=== PATIENT | male | born 1950 | race Caucasian/White ===

== ENCOUNTER 2020-12-26 08:30 | Day surgery (SDC) | payer BC, SELFPAY ==
[2020-12-19 20:34] VITALS: BMI 24.3
--- NOTE | 2020-12-25 10:26 | P.CONAN_ITS ---
Documented by User: Ebonie Mcintyre 12/25/20 11:58 HPI - Anesthesia Eval Consult details Narrative: 70yo M for Colonoscopy Eliquis - afib Routine cardiac visit 05/2020 - stable for 1 year f/u [facility] Past Medical History Medical History Afib BPH (benign prostatic hyperplasia) CHF (congestive heart failure) Connective tissue disease, undifferentiated Diverticulitis GERD (gastroesophageal reflux disease) History of pericarditis History of right inguinal hernia Hypothyroid Iron deficiency anemia Orthostatic hypotension Sjogrens syndrome SVT (supraventricular tachycardia) Ulcerative colitis Umbilical hernia Surgical History Surgical History H/O cardiac radiofrequency ablation (2011) History of colonoscopy History of partial colectomy (~2005) Hx of tonsillectomy Social History Social History Smoking Status: Former smoker Smoked in Last 30 Days: No Smoking Quit Date: 1995 Use of substances other than those prescribed or required for medical reasons: No Advance Directives: No Advance Directives Information Provided: No Advance Directives on File: No Recently lost weight without trying: No Meds Allergies Allergy/AdvReac Type Severity Reaction Status Date / Time latex [LATEX] Allergy Unknown RASH Unverified 06/19/20 16:03 oxybutynin Allergy Confusion Verified 12/19/20 20:12 pantoprazole Allergy Confusion Verified 12/19/20 20:12 latex Allergy Unknown rash Uncoded 06/05/14 00:00 Latex Gloves Allergy Unknown rash Uncoded 01/01/14 00:00 Home Medications Medication Instructions Recorded Confirmed Last Taken Type apixaban [Eliquis] 1 tab PO BID 12/19/20 12/19/20 Unknown History ascorbic acid (vitamin C) [Vitamin 500 mg PO DAILY 12/19/20 12/19/20 Unknown History C] ferrous sulfate [iron] 325 mg PO DAILY 12/19/20 12/19/20 Unknown History levothyroxine 1 tab PO DAILY 12/19/20 12/19/20 12/26/20 07:00 History mesalamine 2 tab PO BID 12/19/20 12/19/20 Unknown History multivitamin 1 tab PO DAILY 12/19/20 12/19/20 Unknown History vitamin D3-folic acid tab 12/19/20 Unknown History Exam Exam Date and Time: December 25, 2020 1026 Height,Weight and Vital Signs: Height 5 ft 10 in Weight 77.111 kg Narrative Narrative: EKG 10/2019 SB @ 57 Incomp RBBB LAFB Nons[address] abn Echo 2018 LV normal in size, wall thickness, and systolic function EF 55-65% No RWMA seen Normal diastolic function LA mildly dilated No significant valve disease Assessment and Plan Assessment Anesthesia Assessment: Chart Reviewed Documented by User: Juany Farooq 12/26/20 09:15 [facility] Past Medical History Medical History Afib BPH (benign prostatic hyperplasia) CHF (congestive heart failure) Connective tissue disease, undifferentiated Diverticulitis GERD (gastroesophageal reflux disease) History of pericarditis History of right inguinal hernia Hypothyroid Iron deficiency anemia Orthostatic hypotension Sjogrens syndrome SVT (supraventricular tachycardia) Ulcerative colitis Umbilical hernia Surgical History Surgical History H/O cardiac radiofrequency ablation (2011) History of colonoscopy History of partial colectomy (~2005) Hx of tonsillectomy Social History Social History Smoking Status: Former smoker Smoked in Last 30 Days: No Smoking Quit Date: 1995 Use of substances other than those prescribed or required for medical reasons: No Advance Directives: No Advance Directives Information Provided: No Advance Directives on File: No Recently lost weight without trying: No Meds Allergies Allergy/AdvReac Type Severity Reaction Status Date / Time latex [LATEX] Allergy Unknown RASH Unverified 06/19/20 16:03 oxybutynin Allergy Confusion Verified 12/19/20 20:12 pantoprazole Allergy Confusion Verified 12/19/20 20:12 latex Allergy Unknown rash Uncoded 06/05/14 00:00 Latex Gloves Allergy Unknown rash Uncoded 01/01/14 00:00 Home Medications Medication Instructions Recorded Confirmed Last Taken Type apixaban [Eliquis] 1 tab PO BID 12/19/20 12/19/20 Unknown History ascorbic acid (vitamin C) [Vitamin 500 mg PO DAILY 12/19/20 12/19/20 Unknown History C] ferrous sulfate [iron] 325 mg PO DAILY 12/19/20 12/19/20 Unknown History levothyroxine 1 tab PO DAILY 12/19/20 12/19/20 12/26/20 07:00 History mesalamine 2 tab PO BID 12/19/20 12/19/20 Unknown History multivitamin 1 tab PO DAILY 12/19/20 12/19/20 Unknown History vitamin D3-folic acid tab 12/19/20 Unknown History Exam Airway Mallampati Class: II TM Dist: >3cm Neck ROM: Full
[2020-12-26 09:11] VITALS: BP 124/57; PULSE 60; RESP 16; TEMP 36.4; O2SAT 99
[2020-12-26] MEDS: Lactated Ringers 1,000 ML 50 ML IV (09:21)
[2020-12-26 10:37] VITALS: BP 111/60; PULSE 52; RESP 16; TEMP 35.9; O2SAT 98
--- NOTE | 2020-12-26 10:40 | PM.OP ---
Brief Operative Note Date of Service: 12/26/20 Pre-op diagnosis: Ulcerative colitis, Colorectal cancer screening Post-op diagnosis: other (Same, R/O dysplasia) Procedure: Colonoscopy to the cecum with biopsies Surgeon: Martin Ingram Anesthesia: MAC Estimated blood loss (mL): 6.0 Pathology: other (A. Ascending colon B. Transverse colon C. Descending colon D. Sigmoid colon E. rectum) Condition: stable Disposition: PACU
[2020-12-26 10:50] VITALS: BP 120/50; PULSE 50; RESP 18; TEMP 36.4; O2SAT 99
--- NOTE | 2020-12-26 10:56 | OP_ITS ---
SURGEON: Martin Ingram MD INDICATIONS: The patient presents for followup of colorectal cancer screening and longstanding history of ulcerative colitis. Full consent has been obtained from him for this, including risks of bleeding and perforation. PREOPERATIVE DIAGNOSIS: POSTOPERATIVE DIAGNOSIS: PROCEDURE PERFORMED: Colonoscopy to the cecum with multiple biopsies. ESTIMATED BLOOD LOSS: COMPLICATIONS: ANESTHESIA: Monitored anesthesia care. ASSISTANTS: SPECIMENS: PREOPERATIVE DIAGNOSES: History of ulcerative colitis and colorectal cancer screening. POSTOPERATIVE DIAGNOSES: History of ulcerative colitis and colorectal cancer screening, rule out dysplasia, sigmoid diverticulosis, internal hemorrhoids, and no active ulcerative colitis. DESCRIPTION OF PROCEDURE: The patient was placed in the left lateral decubitus position. The digital rectal exam revealed no abnormalities. There was no sign of any perianal disease. The Olympus video pediatric colonoscope was entered into the rectum and advanced easily to the cecum. Once in the cecum, I did identify normal-appearing cecal pouch with appendiceal orifice and a normal-appearing ileocecal valve. The entire cecum and ileocecal valve were well visualized and appeared normal. There was transillumination of light deep in the right lower quadrant. The scope was then slowly withdrawn assessing all mucosal surfaces carefully. Preparation was excellent. I did not visualize any sign of active colitis, polyps, nor angiodysplasia. There was some minimal areas of scarring in the descending colon and rectum. Multiple biopsies were obtained in the ascending colon, transverse colon, descending colon, sigmoid colon, and rectum. There was a mild amount of sigmoid diverticulosis. In the rectum, scope was retroflexed visualizing some internal hemorrhoids, but no other pathology. The scope was straightened out and withdrawn from the patient. He tolerated the procedure well and was returned to the recovery area in stable condition. IMPRESSION: 1. History of ulcerative colitis, rule out dysplasia. 2. Diverticulosis. 3. Internal hemorrhoids. PLAN: The results of the biopsies will be checked. Assuming there is no dysplasia, I would recommend a repeat colonoscopy in 3 years. He was advised not to use any aspirin and NSAIDs for 1 week. He was advised to continue his current regimen of the mesalamine 4.8 g daily. He was advised to resume his Eliquis tomorrow. He was advised not to use any aspirin and NSAIDs for at least a week, but preferably long-term given his use of Eliquis and underlying inflammatory bowel disease. I will plan to see him in the fall for a followup visit, but did advise him to call sooner as needed. MD SARA Lawson/PONCHO / [phone]
[2020-12-26 11:09] VITALS: BP 121/52; PULSE 55; RESP 18; O2SAT 99
== END 2020-12-26 11:51 | disposition home or self-care (01) ==
PROVIDERS: PCP Hospitalist; Visit Provider Internal Medicine
PROC: 0DJD8ZZ Inspection of Lower Intestinal Tract, Via Natural or Artificial Opening Endoscopic (ICD-10-PCS; CPT 45378; principal; 2020-12-26 09:10)
DX: Z12.11 Encounter for screening for malignant neoplasm of colon (principal); K51.00 Ulcerative (chronic) pancolitis without complications; K57.30 Diverticulosis of large intestine without perforation or abscess without bleeding; K64.8 Other hemorrhoids; I48.91 Unspecified atrial fibrillation; D50.9 Iron deficiency anemia, unspecified; M35.00 Sjogren syndrome, unspecified; Z79.01 Long term (current) use of anticoagulants; Z90.49 Acquired absence of other specified parts of digestive tract; Z79.899 Other long term (current) drug therapy; Z91.040 Latex allergy status; Z88.8 Allergy status to other drugs, medicaments and biological substances; Z87.891 Personal history of nicotine dependence
CPT/HCPCS: 45380; 88305

== ENCOUNTER 2023-01-28 07:10 | Outpatient (REF) | payer BC, SELFPAY ==
--- NOTE | ~2023-01-28 | MR_ITS ---
EXAMINATION: MR ABDOMEN WITHOUT CONTRAST CLINICAL INFORMATION: Follow-up abnormal CT scan. Dilated common bile duct. COMPARISON: Outside CT scan of the abdomen and pelvis October 2021 TECHNIQUE: MR abdomen is performed without gadolinium contrast. MRCP sequences were also performed. FINDINGS: LUNG BASES: The visualized lung bases are unremarkable. LIVER, GALLBLADDER, AND BILIARY TREE: The liver is normal in size, smooth in contour, and normal in signal. There are multiple low signal T1-signal T2 weighted sequences lesions seen throughout the liver. When compared with previous CT scan, these likely represent cysts. The largest measures 1 cm high in the dome of the liver. No other focal liver lesion. No intrahepatic biliary duct dilatation. The common bile duct is slightly dilated measuring up to 1.0 cm distally. The common bile duct tapers smoothly in the head of the pancreas. No filling defect or stricture is seen. The gallbladder is unremarkable with no evidence of gallbladder wall thickening, or obvious pericholecystic inflammatory changes. PANCREAS: The pancreas is normal in signal. The main pancreatic duct does not appear dilated. SPLEEN: Unremarkable. ADRENAL GLANDS: Unremarkable. KIDNEYS AND URETERS: There are multiple small bilateral T2 lesions in both kidneys. When compared with previous CT scan, these likely represent cysts, largest measuring 1 cm. No imaging follow-up recommended. The kidneys are normal in size and shape. No hydronephrosis. No perinephric stranding. GASTROINTESTINAL TRACT: No bowel obstruction. No ascites or fluid collection. ABDOMINAL WALL: No significant hernia is appreciated. LYMPH NODES: No lymphadenopathy. VASCULAR: Unremarkable. OSSEOUS STRUCTURES: Marrow signal normal. There is multilevel degenerative disc disease. MR/MR MRCP IMPRESSION: Mild dilatation of the common bile duct measuring up to 1.0 cm. This is slightly decreased compared to previous CT scan October 2021 when the common bile duct measured 1.2 cm. No filling defect or stricture is seen. Liver and bilateral renal cysts.
== END 2023-01-28 07:11 | disposition home or self-care (01) ==
LOC: HO.MRI 07:10
PROVIDERS: PCP Physician Assistant; Visit Provider Internal Medicine
DX: R93.2 Abnormal findings on diagnostic imaging of liver and biliary tract (principal)
CPT/HCPCS: 74181

== ENCOUNTER 2024-06-06 09:23 | Day surgery (SDC) | payer BC, SELFPAY ==
[2024-06-01 14:38] VITALS: BMI 23.4
--- NOTE | 2024-06-05 09:33 | P.CONAN_ITS ---
Documented by User: Ebonie Mcintyre NP 06/05/24 09:46 HPI - Anesthesia Eval Consult details Narrative: 73yo M for Colonoscopy Follows [facility] cardiology Xarelto for afib (s/p ablation) Orthostatic hypotension Chronotropic incompetence CAD: minimal irreg by cath 2011 [facility] Past Medical History Medical History History of right inguinal hernia Iron deficiency anemia BPH (benign prostatic hyperplasia) Orthostatic hypotension SVT (supraventricular tachycardia) History of pericarditis Hypothyroid Ulcerative colitis GERD (gastroesophageal reflux disease) Diverticulitis CHF (congestive heart failure) Afib Connective tissue disease, undifferentiated Sjogrens syndrome Surgical History Surgical History Hx of umbilical hernia repair Hx of right inguinal hernia repair History of cardiac radiofrequency ablation (RFA) Hx of tonsillectomy History of colonoscopy History of partial colectomy (~2005) Social History Social History Are you a primary critical care physician assistant to a significant other at home: No Do you presently have visiting nurse or other home services: No Patient Tobacco Use Status: Former Tobacco user Tobacco use type: Cigarette Use of substances other than those prescribed or required for medical reasons: No Are you DNR?: No Advance Directives: No Advance Directives Information Provided: Yes Recently lost weight without trying: No Eating poorly because of decreased appetite: No Nutrition Risks: No Nutritional Risk Poor oral hygiene: Yes Meds Allergies Allergy/AdvReac Type Severity Reaction Status Date / Time oxybutynin Allergy Intermediate Confusion Verified 06/01/24 14:44 pantoprazole Allergy Intermediate Confusion Verified 06/01/24 14:44 latex [LATEX] Allergy Mild RASH Verified 12/26/20 09:18 mirabegron Allergy Unknown Unknown Verified 06/01/24 14:47 Home Medications ?Medication ?Instructions ?Recorded ?Confirmed ?Last Taken ?Type ascorbic acid (vitamin C) 500 mg 500 mg PO DAILY 12/19/20 06/01/24 Unknown History capsule,extended release (Vitamin C) levothyroxine 137 mcg tablet 1 tab PO DAILY 12/19/20 06/01/24 12/26/20 07:00 History mesalamine 1.2 gram tablet,delayed 2 tab PO BID 12/19/20 06/01/24 Unknown History release multivitamin 1 tab PO DAILY 12/19/20 06/01/24 Unknown History calcium phosphate 250 mg-vit D3 1 tab PO DAILY 06/01/24 06/01/24 Unknown History 12.5 mcg (500 unit) chewable tablet (Citracal-D3 Gummies) cholecalciferol (vitamin D3) 10 10 mcg PO DAILY 06/01/24 06/01/24 Unknown History mcg (400 unit) capsule (Vitamin D3) ferrous sulfate 325 mg (65 mg 325 mg PO DAILY 06/01/24 06/01/24 Unknown History iron) tablet rivaroxaban 20 mg tablet (Xarelto) 20 mg PO QAM 06/01/24 06/06/24 06/02/24 History vibegron 75 mg tablet (Gemtesa) 75 mg PO DAILY 06/01/24 06/01/24 Unknown History Exam Height,Weight and Vital Signs: Height 5 ft 11.25 in Weight 76.657 kg Narrative Narrative: EKG 2022 SB @ 52 1st AV block LAD RBBB Isolated PAC ECHO 2018 LV size is nml, wall thickness and systolic function EF 55-65% No regional wall motion abnormalities Nml diastolic function LA mildly dilated No significant valve disease Assessment and Plan Assessment Anesthesia Assessment: Chart Reviewed Documented by User: Mary Roche MD 06/06/24 14:08 [facility] Past Medical History Medical History History of right inguinal hernia Iron deficiency anemia BPH (benign prostatic hyperplasia) Orthostatic hypotension SVT (supraventricular tachycardia) History of pericarditis Hypothyroid Ulcerative colitis GERD (gastroesophageal reflux disease) Diverticulitis CHF (congestive heart failure) Afib Connective tissue disease, undifferentiated Sjogrens syndrome Surgical History Surgical History Hx of umbilical hernia repair Hx of right inguinal hernia repair History of cardiac radiofrequency ablation (RFA) Hx of tonsillectomy History of colonoscopy History of partial colectomy (~2005) History of Problems with Anesthesia: No Social History Social History Are you a primary critical care physician assistant to a significant other at home: No Do you presently have visiting nurse or other home services: No Patient Tobacco Use Status: Former Tobacco user Tobacco use type: Cigarette Use of substances other than those prescribed or required for medical reasons: No Are you DNR?: No Advance Directives: No Advance Directives Information Provided: Yes Recently lost weight without trying: No Eating poorly because of decreased appetite: No Nutrition Risks: No Nutritional Risk Poor oral hygiene: Yes Meds Allergies Allergy/AdvReac Type Severity Reaction Status Date / Time oxybutynin Allergy Intermediate Confusion Verified 06/01/24 14:44 pantoprazole Allergy Intermediate Confusion Verified 06/01/24 14:44 latex [LATEX] Allergy Mild RASH Verified 12/26/20 09:18 mirabegron Allergy Unknown Unknown Verified 06/01/24 14:47 Home Medications ?Medication ?Instructions ?Recorded ?Confirmed ?Last Taken ?Type ascorbic acid (vitamin C) 500 mg 500 mg PO DAILY 12/19/20 06/01/24 Unknown History capsule,extended release (Vitamin C) levothyroxine 137 mcg tablet 1 tab PO DAILY 12/19/20 06/01/24 12/26/20 07:00 History mesalamine 1.2 gram tablet,delayed 2 tab PO BID 12/19/20 06/01/24 Unknown History release multivitamin 1 tab PO DAILY 12/19/20 06/01/24 Unknown History calcium phosphate 250 mg-vit D3 1 tab PO DAILY 06/01/24 06/01/24 Unknown History 12.5 mcg (500 unit) chewable tablet (Citracal-D3 Gummies) cholecalciferol (vitamin D3) 10 10 mcg PO DAILY 06/01/24 06/01/24 Unknown History mcg (400 unit) capsule (Vitamin D3) ferrous sulfate 325 mg (65 mg 325 mg PO DAILY 06/01/24 06/01/24 Unknown History iron) tablet rivaroxaban 20 mg tablet (Xarelto) 20 mg PO QAM 06/01/24 06/06/24 06/02/24 History vibegron 75 mg tablet (Gemtesa) 75 mg PO DAILY 06/01/24 06/01/24 Unknown History Exam Airway Mallampati Class: II TM Dist: >3cm Neck ROM: Full Loose/Missing/Broken Teeth: No Heart: RRR Lungs: CTA Assessment and Plan Assessment Anesthesia Assessment: Anesthesia Plan Discussed Final Anesthetic Review History of Problems with Anesthesia: No NPO: Yes ASA Class: III Final Preanesthetic Review: Meds/Allgs Chart Reviewed, Consent Obtained/Reviewed and Anes Risks/Benef Reviewed Patient Risk: Intermediate Anesthetic Plan Anesthetic Plan: MAC: Disposition: Standard PACU
[2024-06-06 10:25] VITALS: BMI 23.7
[2024-06-06 10:45] VITALS: BP 119/59; PULSE 64; RESP 16; TEMP 36.5; O2SAT 99
[2024-06-06] MEDS: Lactated Ringers 1,000 ML 50 ML IVCONT (10:54)
[2024-06-06 14:34] VITALS: BP 124/58; PULSE 54; RESP 18; TEMP 36.1; O2SAT 99
--- NOTE | 2024-06-06 14:36 | P.BOP_ITS ---
Brief Operative Note Date of Service: 06/06/24 Pre-op diagnosis: Ulcerative colitis, Screening Post-op diagnosis: other (Internal hemorrhoids, R/O Dysplasia, Normal anastomosis) Procedure: Colonoscopy to the cecum with biopsies Surgeon: Martin Ingram MD Anesthesia: MAC Was an Manager Intensive Care used for this Procedure?: No Estimated blood loss (mL): 2.0 Pathology: other (A. Ascending colon B. Transverse colon C. Colon 50-70cm D. Colon 20-30cm E. Rectum) Condition: stable Disposition: PACU
[2024-06-06 14:39] VITALS: BP 125/57; PULSE 56; RESP 14; O2SAT 99
[2024-06-06 14:44] VITALS: BP 123/54; PULSE 55; RESP 16; O2SAT 99
[2024-06-06 14:49] VITALS: BP 127/60; PULSE 65; RESP 16; TEMP 36.1; O2SAT 99
--- NOTE | 2024-06-06 23:20 | OP_ITS ---
DATE OF SERVICE: 06/06/2024 SURGEON: Martin Ingram MD INDICATIONS: The patient presents for evaluation of colorectal cancer screening and a longstanding history of ulcerative colitis. Full consent has been obtained from him for this, including risks of bleeding and perforation. PREOPERATIVE DIAGNOSIS: POSTOPERATIVE DIAGNOSIS: PROCEDURE PERFORMED: Colonoscopy to the cecum with multiple biopsies. ESTIMATED BLOOD LOSS: COMPLICATIONS: ANESTHESIA: Monitored anesthesia care. ASSISTANTS: SPECIMENS: PREOPERATIVE DIAGNOSES: Colorectal cancer screening and long-standing history of ulcer colitis. POSTOPERATIVE DIAGNOSES: Colorectal cancer screening and long-standing history of ulcer colitis, rule out dysplasia, occasional diverticulosis, internal hemorrhoids. DESCRIPTION OF PROCEDURE: The patient was placed in the left lateral decubitus position. The digital rectal exam revealed no abnormalities. The Olympus videopediatric colonoscope was entered into the rectum and advanced easily to the cecum. Once in the cecum, I did identify normal-appearing cecal pouch with appendiceal orifice and a normal-appearing ileocecal valve. There was transillumination of light deep in the right lower quadrant. The entire cecum and ileocecal valve appeared normal. The scope was slowly withdrawn assessing all mucosal surfaces carefully. Preparation was excellent. I did not visualize any sign of colitis, polyps, nor angiodysplasias. His anastomosis was visualized at approximately 20 cm and appeared normal. There was occasional diverticula just proximal to the anastomosis. I did not visualize any sign of polyps, nor any active colitis. I did obtain random biopsies in the ascending colon, transverse colon, colon between 50 and 70 cm, colon between 20 and 30 cm, and in the rectum. In the rectum, scope was retroflexed visualizing internal hemorrhoids, but no other pathology. The rectal mucosa appeared normal. Scope was straightened and withdrawn from the patient. He tolerated the procedure well and was returned to the recovery area in stable condition. IMPRESSION: 1. Rule out dysplasia. 2. Occasional diverticulosis proximal to the anastomosis. 3. Internal hemorrhoids. PLAN: The results of biopsies will be checked. He was advised to resume his Xarelto and iron in 48 hours. He was advised that he should avoid all aspirin and NSAIDs long-term while on the Xarelto, as well as in regard to the underlying inflammatory bowel disease. I would recommend a repeat colonoscopy in 3 years. He will follow up with me in the spring. He was advised to continue his daily mesalamine for the colitis. He was advised to call sooner as needed. MD SARA Lawson/PONCHO / [phone] [email or web address]
== END 2024-06-06 15:20 | disposition home or self-care (01) ==
PROVIDERS: Visit Provider Internal Medicine
PROC: 0DJD8ZZ Inspection of Lower Intestinal Tract, Via Natural or Artificial Opening Endoscopic (ICD-10-PCS; CPT 45378; principal; 2024-06-06 10:40)
DX: Z12.11 Encounter for screening for malignant neoplasm of colon (principal); K51.00 Ulcerative (chronic) pancolitis without complications; K57.30 Diverticulosis of large intestine without perforation or abscess without bleeding; K64.8 Other hemorrhoids; I48.91 Unspecified atrial fibrillation; M35.9 Systemic involvement of connective tissue, unspecified; I95.1 Orthostatic hypotension; D50.9 Iron deficiency anemia, unspecified; Z79.01 Long term (current) use of anticoagulants; Z79.899 Other long term (current) drug therapy; Z90.49 Acquired absence of other specified parts of digestive tract; Z98.0 Intestinal bypass and anastomosis status; Z91.040 Latex allergy status; Z88.8 Allergy status to other drugs, medicaments and biological substances; Z87.891 Personal history of nicotine dependence
CPT/HCPCS: 45380; 88305; J2704

== ENCOUNTER 2025-02-28 12:52 | Outpatient (REF) | payer BC, SELFPAY ==
--- OUTSIDE RECORDS SUMMARY | 2025-02-28 12:55 | XMS_ITS ---
Author Organization [facility] Address [address] [place] [address] Care Team Providers Care Office Support Associate Name Role Phone Sol Fair Primary Care Provider U Carley Zayas Unavailable [phone] Allergies Allergen (clinical drug ingredient) Drug/Non Drug Allergy documented on EMR Reaction Allergy Type Onset Date Status pantoprazole Pantoprazole Unknown Drug Allergy A ctive mirabegron Myrbetriq Unknown Drug Allergy Active Oxybutynin Unknown Drug Allergy Active Latex Latex (uncoded) Unknown Allergy Acti ve Encounters Encounter Location Date Provider Diagnosis [facility] [address] [place] [address] 11/23/2024 Carley Ingram Plan Of Treatment Next Appt Details Provider Name:Carley Ingram , 06/26/2025 02:00:00 PM, [address], [address], [place], [address], Progress Notes * CARLEY GODINEZ ADOB: [birth year] (74 yo M)Acc No.[id number]:11/23/2024 Patient:?CARLEY GODINEZ :1950???Age:74 Y???Sex:Male Address:[address] [place] [address] Subjective: * Chief Complaints: * ??? * Medical History:? * Surgical History:? * Hospitalization/Major Diagno stic Procedure:? * Medications:? * Allergies:?LatexOxybutyninPa ntoprazoleMyrbetriqyes[Allergies Verified] Objective: Assessment: Plan: * Treatment: * Procedure Codes:? * true * Date:? Generated for Adán dhaliwal/Aracelis/Archana on:?02/28/2025 12:55 PM EDT
== END 2025-02-28 12:53 | disposition home or self-care (01) ==
LOC: HO.SH 12:52
PROVIDERS: Visit Provider Physician Assistant
DX: Z01.118 Encounter for examination of ears and hearing with other abnormal findings (principal); H90.3 Sensorineural hearing loss, bilateral
CPT/HCPCS: 92557; 92567

== ENCOUNTER 2025-08-13 14:45 | Outpatient (REF) | payer BC, SELFPAY ==
--- OUTSIDE RECORDS SUMMARY | 2024-06-06 04:40 | XMS_ITS ---
Author Organization [facility] Address [address] [place] [address] Care Team Providers Care Portrait Consultant Name Role Phone Sol Fair Primary Care Provider U Carley Zayas Unavailable [phone] REASON FOR VISIT ulcerative pancolitis,screening Problems Problem Type SNOMED Code ICD Code Onset Dates Problem Status W/U Status Risk Notes Problem Ulcerative pancolitis (005976997) Ulcerative pancolitis (K51.00) Active confirmed Problem History of gastrointestinal tract bypass (641809856) Intestinal bypass and anastomosis status (Z98.0) Active confirmed Problem Diverticular disease of colon (595538867) Diverticulosis of large intestine without perforation or abscess without bleeding (K57.30) Active confirmed Encounters Encounter Location Date Provider Diagnosis [facility] [place] [address] [place] [id number] 06/06/2024 Carley Ingram Ulcerative pancoli tis K51.00 [...] 09:10:00 AM, [address], [address], [place], [address], Progress Notes * CARLEY GODINEZ ADOB: [birth year] (75 yo M)Acc No.[id number]:06/06/2024 COLON WITH MAC Patient: CARLEY ECHAVARRIA Provider: Junior Ingram MD :1950 A ge:73 Y S ex:Male Date:06/06/2024 Address:[address] [place] [address] Pcp:Christine Fischer Subjective: * Chief Complaints: * [...] 06/06/2024 Generated for Adán dhaliwal/Aracelis/Ratnaitting on: 1 10/13/2024 04:31 PM EST
--- OUTSIDE RECORDS SUMMARY | 2025-08-12 04:15 | XMS_ITS ---
Author Organization [facility] Address [address] [place] [address] Care Team Providers Care Filter Helper Name Role Phone Rhianna King, Sol Mccarthy Primary Care Provider U Carley Zayas Unavailable [phone] REASON FOR VISIT Flare of colitis Medications Medication SIG (Take, Route, Fr equency, Duration) Notes Start Date End Date Status predniSONE 5 MG 8 of the 5mg pills(4 0mg) daily for 1 week, and then decrease by 1 pill(5mg) per week Orally Once a day; Duration: 56 days 08/13/2025 Active Problems Problem Type SNOMED Code ICD Code Onset Dates Problem Status W/U Status Risk Notes Problem Diarrhea (68688446) Diarrhea (R19.7) Active confirmed Problem Ulcerative colitis (33939389) Ulcerative colitis (K51.90) Active confirmed Encounters Encounter Location Date Provider Diagnosis [facility] [place] [phone] 08/12/2025 Carley Ingram Diarrhea R19.7 and Ulcerative colitis K51.90 Assessments Encounter Date Diagnosis (ICD Code) Assessment Notes Treatment Notes Treatment Clinical Notes Section Notes 08/12/2025 Diarrhea (ICD-10 - R19.7) 08/12/2025 Ulcerative colitis (ICD-10 - K51.90) Plan Of Treatment Medication Medication Name Sig Start Date Stop Date Notes predniSONE 5 MG 8 of the 5mg pills(4 0mg) daily for 1 week, and then decrease by 1 pill(5mg) per week Orally Once a day; Duration: 56 days 08/13/2025 Pending Test Test Name Order Date CHEM 7 PROFILE 08/12/2025 LIVER PROFILE 08/12/2025 CRP 08/12/2025 CBC w DIFF 08/12/2025 SED RATE (ESR) 08/12/2025 C DIFFICILE RFLX PCR 08/12/2025 Calprotectin, Fecal 08/12/2025 GI PANEL 08/12/2025 Next Appt Details Provider Name:Calrey Ingram , 07/01/2026 09:10:00 AM, [address] [facility], [address] [facility], [place], [address], Progress Notes * CARLEY GODINEZ ADOB: [birth year] (75 yo M)Acc No.[id number]:08/12/2025 Patient: CARLEY ECHAVARRIA :1950 A ge:75 Y S ex:Male Address:[address] [place] [address] * Refills Start predniSONE Tablet, 5 MG, Orally, 275, 8 of the 5mg pills(40mg) daily for 1 week, and then decrease by 1 pill(5mg) per week, Once a day, 56 days, Refills=0 Subjective: * Chief Complaints: * F lare of colitis * Medical History: * Surgical History: * Hospitalization/Major Diagno stic Procedure: * Medications: Objective: * Vitals: * Physical Examination: Assessment: * Assessment: 1. D iarrhea - R19.7 (Primary) 2 . U lcerative colitis - K51.90 ? Plan: * Treatment: 2. U lcerative colitis L AB: CHEM 7 PROFILE L AB: LIVER PROFILE L AB: CRP L AB: CBC w DIFF L AB: SED RATE (ESR) L AB: C DIFFICILE RFLX PCR L AB: Calprotectin, Fecal L AB: GI PANEL 3. O thers Start predniSONE Tablet, 5 MG, 8 of the 5mg pills(40mg) daily for 1 week, and then decrease by 1 pill(5mg) per week, Orally, Once a day, 56 days, 275, Refills 0. * Procedure Codes: * * Date:
--- OUTSIDE RECORDS SUMMARY | 2025-08-12 23:59 | XMS_ITS | Continuity of Care Document ---
Author Organization [facility] Address [address] [place] [address]- Care Team Providers Care Human Resources Leader Name Role Phone Sol Ren Primary Care Physician [phone] Encounter [facility] NBR [id number] Date(s): 08/05/25 - 08/12/25 [facility] Adult [address] [place] [address]- Encounter Diagnosis Diarrhea(Discharge Diagnosis) - 08/05/25 Attending Physician: Prateek Seals MD Encounter Type: Office Visit Allergies, Adverse Reactions, Alerts Substance Criticality Severity Reaction Reaction Severity Status oxybutynin Active pantoprazole Active mirabegron Active Latex 1 Active 1rash Functional Status Functional Status Assessment Assessment Assessment Component Result Effecti ve Date Disability status [CUBS] I'm Thriving - no identified disability 08/05/25 Because of a physica l, mental, or emotional condition, do you have difficulty doing errands alone such as visiting a physician's office or shopping No 08/05/25 Do you have difficul ty dressing or bathing No 08/05/25 Do you need any samira tional assistance or accommodations during your visit No 08/05/25 Do you have serious difficulty walking or climbing stairs Yes 08/05/25 Because of a physica l, mental, or emotional condition, do you have serious difficulty concentrating, remembering, or making decisions No 08/05/25 Difficulty Reading O r Writing No 08/05/25 Are you blind, or do you have serious difficulty seeing, even when wearing glasses Yes 08/05/25 Difficulty communica ting in usual language No 08/05/25 Are you deaf, or do you have serious difficulty hearing Yes 08/05/25 Immunizations Given and Recorded Vaccine Date Status Refusal Reason zoster vaccine, inactivated 07/04/25 Recorded influenza virus vaccine, inactivated 06/28/25 Oren rded influenza virus vaccine, inactivated 06/13/24 Oren rded influenza virus vaccine, inactivated 08/16/23 Oren rded influenza virus vaccine, inactivated 08/23/22 Oren rded influenza virus vaccine, inactivated 07/24/21 Oren rded influenza virus vaccine, inactivated 07/04/20 Oren rded influenza virus vaccine, inactivated 07/19/19 Oren rded influenza virus vaccine, inactivated 06/20/18 Oren rded tetanus/diphtheria/pertussis, acel(Tdap) 10/10/24 Given tetanus/diphtheria/pertussis, acel(Tdap) 06/05/14 Recorded SARS-CoV-2(COVID-19)mRNA-LNP vac([id number]) 06/13/24 Recorded SARS-CoV-2(COVID-19)mRNA-LNP vac([id number]) 08/05/23 Recorded RSV vaccine preF3, recombinant 08/05/23 Recorded [id number] bivalent booster vax 07/26/22 Recorded SARS-CoV-2 mRNA ([id number]) vax 01/30/22 Recorded SARS-CoV-2 (COVID-19) mRNA BNT-162b2 vac 07/24/21 Recorded SARS-CoV-2 (COVID-19) mRNA BNT-162b2 vac 12/20/20 Recorded SARS-CoV-2 (COVID-19) mRNA BNT-162b2 vac 11/29/20 Recorded pneumococcal 23-valent vaccine 09/03/19 Recorded pneumococcal 23-valent vaccine 06/05/14 Recorded pneumococcal 13-valent vaccine 09/03/16 Recorded Zoster Vaccine Live 08/30/11 Recorded Medications Calcium 600 +D 1 tablet, By Mouth, 2 times a day, 0 Refills, Maintenance, 01/29/13 9:04:00 AM EDT Start Date: 01/29/13 Status: Ordered Medication Dispense Status: Completed Total Allowed Fills: 1 Fills Dispensed: 0 Compression Stockings See Instructions, # 2 pair, Refills 2, Tot. Refills 2, Maintenance, surgical, calf length 20-30 mm Hg Dx: venous insufficiency, 06/30/18 4:08:24 PM EDT, Compound Start Date: 06/30/18 Status: Ordered Medication Dispense Status: Completed Quantity: 2.0 Unit: pair Total Allowed Fills: 3 Fills Dispensed: 0 furosemide 20 mg oral tablet 20 mg, 1, tablet, By Mouth, Daily, 1 tablet by mouth daily for edema, can reduce to as needed if edema resolves. Can use at slightly higher dose if edema worsens, discuss with cardiology first, # 30 tablet, Refills 11, Tot. Refills 11, Maintenance, 12/26/24 10:44:00 AM EDT, Route to Pharmacy Electronically, [facility]/pharmacy #[id number], Partial fill upon patient request if the prescription is for a scheduleII opioid drug., 175.7, cm, 12/19/24 9:07:00 EDT, Height, 76.7, kg, 10/29/24 7:16:00 EST, Dry Weight Start Date: 12/26/24 Status: Ordered Medication Dispense Status: Completed Quantity: 30.0 Unit: tablet Total Allowed Fills: 12 Fills Dispensed: 0 Gemtesa = 75 mg, By Mouth, Daily, 0 Refills, Maintenance, 07/19/24 9:34:00 AM EDT, Partial fill upon patient request if the prescription is for a schedule II opioid drug. Start Date: 07/19/24 Status: Ordered Medication Dispense Status: Completed Total Allowed Fills: 1 Fills Dispensed: 0 levothyroxine 150 mcg (0.15 mg) oral tablet 1 tablet, By Mouth, Daily, # 90 tablet, 1 Refills, Maintenance, 06/30/25 1:14:00 PM EDT, [facility] STORE [id number], 175.7, cm, 05/23/25 15:44:00 EDT, Height, 76.7, kg, 10/29/24 7:16:00 EST, Dry Weight Start Date: 06/30/25 Status: Ordered Medication Dispense Status: Completed Quantity: 90.0 Unit: tablet Total Allowed Fills: 1 Fills Dispensed: 0 Lomotil 0.025 mg-2.5 mg oral tablet 1, tablet, By Mouth, 3 times a day, PRN, # 21 tablet, Refills 0, Tot. Refills 0, Maintenance, for loose stool, 08/05/25 2:12:00 PM EST, Route to Pharmacy Electronically, [facility]/pharmacy #[id number] Tablet, Partial fill upon patient request if the prescription is for a schedule II opioid drug., 175.7, cm, 08/05/25 13:53:00 EST, Height, 76.7, kg, 10/29/24 7:16:00 EST, Dry Weight Start Date: 08/05/25 Status: Ordered Medication Dispense Status: Completed Quantity: 21.0 Unit: tablet Total Allowed Fills: 1 Fills Dispensed: 0 mesalamine 1.2 g oral delayed release tablet TAKE 2 TABLETS BY MOUTH TWICE A DAY Start Date: 10/18/24 Status: Ordered Medication Dispense Status: Completed Total Allowed Fills: 1 Fills Dispensed: 0 midodrine 5 mg oral tablet 5 mg, 1, tablet, By Mouth, 2 times a day, # 60 tablet, Refills 5, Tot. Refills 5, Maintenance, 03/14/25 2:01:00 PM EDT, Route to Pharmacy Electronically, [facility]/pharmacy #[id number], Partial fill upon patient request if the prescription is for a schedule II opioid drug., 175.7, cm, 03/14/25 11:22:00 EDT, Height, 76.7, kg, 10/29/24 7:16:00 EST, Dry Weight Start Date: 03/14/25 Status: Ordered Medication Dispense Status: Completed Quantity: 60.0 Unit: tablet Total Allowed Fills: 6 Fills Dispensed: 0 Indications: Unspecified atrial fibrillation; Orthostatic hypotension; Multivitamin Tablet 1 tablet, By Mouth, Daily, # 30 tablet, 0 Refills, Maintenance, 06/14/12 10:04:37 AM EDT, Tablet Start Date: 06/14/12 Status: Ordered Medication Dispense Status: Completed Quantity: 30.0 Unit: tablet Total Allowed Fills: 1 Fills Dispensed: 0 Tylenol 325 mg oral tablet 650 mg, 2, tablet, By Mouth, Every 4 hours, Refills 0, Maintenance, 09/21/21 9:36:00 AM EST, Partial fill upon patient request if the prescription is for a schedule II opioid drug. Start Date: 09/21/21 Status: Ordered Medication Dispense Status: Completed Total Allowed Fills: 1 Fills Dispensed: 0 Vitamin B12 0 Refills, Maintenance, 03/23/21 4:17:00 PM EDT, Partial fill upon patient request if the prescription is for a schedule II opioid drug. Start Date: 03/23/21 Status: Ordered Medication Dispense Status: Completed Total Allowed Fills: 1 Fills Dispensed: 0 Vitamin C 500 mg oral tablet 1 tablet = 500 mg, By Mouth, 2 times a day, # 90 tablet, 0 Refills, Maintenance, 01/29/13 9:03:20 AMEDT, Tablet Start Date: 01/29/13 Status: Ordered Medication Dispense Status: Completed Quantity: 90.0 Unit: tablet Total Allowed Fills: 1 Fills Dispensed: 0 Xarelto 20 mg oral tablet 1 tablet = 20 mg, By Mouth, Daily, # 90 tablet, 3 Refills, Maintenance, 11/22/24 12:49:00 PM EST, Tablet, [facility]/pharmacy #[id number], Partial fill upon patient request if the prescription is for a schedule IIopioid drug., 175.7, cm, 11/13/24 9:28:00 EST, Height, 76.7, kg, 10/29/24 7:16:00 EST, Dry Weight Start Date: 11/22/24 Status: Ordered Medication Dispense Status: Completed Quantity: 90.0 Unit: tablet Total Allowed Fills: 4 Fills Dispensed: 0 Mental Status Mental Status Assessment Assessment Assessment Component Result Effecti ve Date Patient Health Questionnaire 2 item (PHQ-2) total score [Reported] 0 08/05/25 Problem List Condition Confirmation Course Effective Dates Status H ealth Status Informant A-fib Confirmed Active BPH (benign prostatic hyperplasia) Confirmed Active Mild COPD (chronic obstructive pulmonary disease) Confirmed Active Erythema nodosum Confirmed Active GERD (gastroesophageal reflux disease) Confirmed Active Hypothyroidism Confirmed Active Erectile dysfunction Confirmed Active Current use of care home anticoagulation Confirmed Active Orthostatic hypotension Confirmed Active Right bundle branch block Confirmed Active Sjogren's disease Confirmed Active Ulcerative colitis 1 Confirmed Active Connective tissue disease, undifferentiated 2 Confirmed Active 1s/p hemicolectomy 2muscle weakness/myalgia flares. Diagnosis Diagnosis Type Effective Dates Health Status [facility] Informant Diarrhea Discharge Diagnosis 08/05/25 Vital Signs Most recent to oldest [Reference Range]: 1 Height 175.7 cm (08/05/25 1:53 PM) Weight 75.6 kg (08/05/25 1:53 PM) Oxygen Saturation [94-100 %] 94 % (08/05/25 1:53 PM) Pulse Rate [55-90 bpm] 69 bpm (08/05/25 1:53 PM) Body Mass Index [18.5-24.99 kg/m2] 24.49 kg/m2 (08/05/25 1:53 PM) Blood Pressure [90-138/55-84 mm Hg] 137/ 74mm Hg (08/05/25 1:53 PM) Temperature [96.8-100.4 DegF] 97.9 DegF (08/05/25 1:53 PM) Blood pressure sites Arm, left (08/05/25 1:53 PM) Temperature Route Oral (08/05/25 1:53 PM) Weight Obtained Via Standing scale (08/05/25 1:53 PM) Social History Social History Type Response Smoking Status Former smoker; Tobac co user in household: No; Other: 1-2ppd x 15y, quit 1982; entered on: 08/04/16 Sexual Orientation Self described orien tation: ; Straight or heterosexual Sex Sex Representation Male (finding) Implantable Device List Procedure Provider Procedure Date Device Type Site Repair Hernia Inguinal Open Nichole Nichols MD 10/29/24 Unknown Groin Left Device Identifier Serial Number Lot or Batch Number Manufacturing Date Expiration Date Distinct Identification Code MRI Safety Implantable Status Assigning Authority Unknown Unknown Unknown Unknown 10/29/24 Unknown Unknown Active Unk nown Note * Sabrina Weller: PERFORM Event Display: Patient Education/Instruction Authored Date: [id number] Ambulatory Adult Visit Summary [facility] Adult [facility] [address] [place] [id number] Name: CARLEY GODINEZ : 1950?? Visit: 08/05/2025 13:47?? Ambulatory Visit Instructions ?? Your Care Team Primary Care Provider Sol Ren? This Visit Provider Prateek Seals MD Your Diagnosis Diarrhea Hypotension Vitals Signs Temperature: 97.9 DegF Height: 175.7 cm Pulse Rate: 69 bpm Weight: 75.6 kg Systolic Blood Pressure: 137 mm Hg Body Mass Index: 24.49 kg/m2 Diastolic Blood Pressure: 74 mm Hg Body surface area: 1.92 Oxygen Saturation: 94 % ?? What to do next Scheduled Follow-Up Appointments 2024 8:30 AM EST ?? Type: SN - Surgery w/o Phone Screen Where: Electrophysiology Status: Pending 2024 11:00 AM EST ?? Type: Return With: Jessica Wang NP Where: [facility] [address] [place] [address]- Status: Pending Tuesday2025 8:30 AM EST ?? Type: Physical With: Sol Ren Where: [facility] [address] [address]- Status: Pending Future Orders TSH - Routine, Once, 12/03/24 15:13:00 EST, Future Order, [facility], Blood?? Free T4 - Routine, Once, 12/03/24 15:13:00 EST, Future Order, [facility], Blood?? Basic Metabolic Panel (BMP) - Routine, Once, 08/05/25 14:10:00 EST, Order for Today, [facility], Blood?? CBC - Routine, Once, 08/05/25 14:11:00 EST, Order for Today, [facility], Blood?? Medications The list below reflects the information in our records and provided by you today along with any changes made during this visit. Please continue your medications until treatment is completed or stopped by your provider. If this is different from the information you have or there are other questions,please contact the prescribing provider. What How Much When Why Instructions Unchanged Acetaminophen (Tylenol 325 mg oral tablet) 2 tab(s) Oral Every 4 hours Unchanged Ascorbic Acid (Vitamin C 500 mg oral tablet) 1 tab(s) Oral Twice a day Unchanged Calcium And Vitamin D Combination (Calcium 600 +D) 1 tab(s) Oral Twice a day Unchanged Cyanocobalamin (Vitamin B12) Unchanged Durable Medical Equipment (Compression Stockings) See instructions Special Instructions: surgical, calf length 20-30 mm Hg Dx: venous insufficiency Ordering Physician: Shabbir HALL, Mary Posada ?? Unchanged Furosemide (furosemide 20 mg oral tablet) 1 tab(s) Oral Daily Special Instructions: 1 tablet by mouth daily for edema, can reduce to as needed if edema resolves.Can use at slightly higher dose if edema worsens, discuss with cardiology first Ordering Physician: Georgina Marinelli ?? Unchanged Levothyroxine (levothyroxine 150 mcg (0.15 mg) oral tablet) 1 tab(s) Oral Daily Ordering Physician: Sol Ren Unchanged Mesalamine (mesalamine 1.2 g oral delayed release tablet) Special Instructions: TAKE 2 TABLETS BY MOUTH TWICE A DAY ?? Unchanged Midodrine (midodrine 5 mg oral tablet) 1 tab(s) Oral Twice a day A-fib Orthostatic hypotension Ordering Physician: Georgina Marinelli Unchanged Multivitamin (Multivitamin Tablet) 1 tab(s) Oral Daily Unchanged rivaroxaban (Xarelto 20 mg oral tablet) 1 tab(s) Oral Daily Ordering Physician: Georgina Marinelli Unchanged vibegron (Gemtesa) 75 Milligram Oral Daily ?? What When Comments Stop Taking Tamsulosin (tamsulosin 0.4 mg oral capsule) Special Instructions: 90 each, 0 Refill(s), TAKE 1 CAPSULE BY MOUTH AT BEDTIME ?? Test Performed Below is a partial list of the tests performed during your Visit. You may have had other tests and procedures not included in this list. Please discuss all test results with your provider. Basic Metabolic Panel (BMP)?-- Results Pending -- CBC?-- Results Pending -- Medications and Immunizations Administered Medications Given During Visit No medications given during this visit.?? Allergies (NKA means No Known Allergies) Latex mirabegron oxybutynin pantoprazole Common Emergency Awareness Tips IS IT A STROKE? Act FAST and Check for these signs: FACE Does the face look uneven? ARM Does one arm drift down? SPEECH Does their speech sound strange? TIME Call at any sign of stroke ?? Heart Attack Signs Chest discomfort: Most heart attacks involve discomfort in the center of the chest and lasts more than a few minutes, or goes away and comes back. It can feel like uncomfortable pressure, squeezing, fullness or pain. Discomfort in upper body: Symptoms can include pain or discomfort in one or both arms, back, neck, jaw or stomach. Shortness of breath: With or without discomfort. Other signs: Breaking out in a cold sweat, nausea, or lightheaded. Remember, MINUTES DO MATTER. If you experience any of these heart attack warning signs, call to get immediate medical attention! ?? Smoking can increase your chances of developing chronic health problems and can cause harmful effects to other family members in your house. If you smoke, you are strongly encouraged to quit. Please call [facility] at [phone] or [phone].Com ([phone]) or log in to [email or web address] for referrals to smoking cessation programs. ?? The National Suicide Prevention Hotline is available 25/04 if you or someone you know needs to find a reason to keep living. By calling 5-806-488-NuLabel (8286) you'll be connected to a skilled, trained counselor at a crisis center in your area. [facility] You can view and manage your care through the patient portal or by using a health care ros of your choosing. [employer] is a website that allows you to securely view your medical information including your hospital discharge summary, office visit summaries, medications and follow-up visits. You can also request appointments, renew medications, and request access to your medical information using a health care ros of your choosing, or just ask a question. You can enroll at [email or web address] or register during your next office visit. [facility], in keeping with [facility] guidance, no longer requires face masks for staff, patientsor visitors in most situations. Similiar to time spent indoors at other locations, there is the chance that you were exposed to repiratory viruses during your time with us (such as flu or COVID-19). If you develop symptoms concerning for a viral respiratory infection, please seek testing (and treatment if indicated) from your medical provider or home test kit. ?? Disclaimer: The information provided is of a general nature and is intended to be used in conjunction with the recommendations and advice of your health care practitioner. Every effort has been made to ensure that the information provided is accurate and complete at the time it is provided to you however, as your needs change, or, as new information becomes available, different or additional instructions may be required. ?? If you have questions, please consult with your primary care provider or pharmacist, as appropriate. This information is not intended to serve as substitution for assessment and evaluation by a qualified health care provider. If you do not have a primary care provider, you may find a [facility] provider by calling [facility] at [phone]. Patient Care team information Care Team Personnel Name: Prakash LEAL, Anna Burleson Position: [facility] Associate Professional Member Role: Primary Care Nurse Address: [address] [place] [address]- [place] Telecom: Name: Carol Walker RN Position: [facility] RN Member Role: Primary Care Nurse Name: Sol Ren Position: [facility] PCO Associate Professional Member Role: PCP Address: [address] [place] [address]- [place] Tele[employer]: Care Team Related Persons Name: MALKA OWEN Insurance Providers Guarantor name: CARLEY GODINEZ Health Plan Information #: 1 Payer: [facility] Payer Identifier: NA Member Number: [id number] Group Number: [id number] Subscriber Identifier: [id number] Relationship to Subscriber: self Coverage Type: BLUE CROSS/BLUE SHIELD Coverage Verification Date: NA Telecom: NA Address: NA
[2025-08-13 15:03] LABS: MANUAL DIFF FLAG NO
[2025-08-13 15:47] LABS: Hematocrit 34.8 % (42.0-52.0); Hemoglobin 11.5 g/dl (14.0-18.0); Imm Gran Abs Auto 0.02 X10*3/uL (0.00-0.03); Imm Gran Pct Auto 0.5 % (0.0-0.4); Lymphocytes Absolute Auto 1.1 X10*3/uL (1.2-4.9); Mean Corpuscular HGB Conc 33.0 g/dl (31.0-36.0); Mean Corpuscular Hemoglobin 33.9 pg (27.0-33.0); Mean Corpuscular Volume 102.7 fL (80.0-98.0); NRBC Abs Auto 0.000 X10*3/uL (0.0-0.012); NRBC Pct Auto 0.0 /100WBC (0.0-0.2); Platelet Count 287 X10*3/uL (160-400); Red Blood Count 3.39 X10*6/uL (4.60-5.80); White Blood Count 4.3 X10*3/uL (4.8-10.8)
[2025-08-13 16:15] LABS: Alanine Aminotransferase 15 U/L (0-40); Albumin Level 4.0 g/dL (3.5-5.0); Alkaline Phosphatase 66 U/L (39-117); Anion Gap 11 (12-20); Aspartate Amino Transferase 25 U/L (5-37); Blood Urea Nitrogen 23 mg/dL (9-16); Calcium 9.0 mg/dL (8.4-10.2); Carbon Dioxide 25 mmol/L (22-29); Chloride 106 mmol/L (96-108); Estimated Glomerular Filt Rate 56; Potassium 4.9 mmol/L (3.3-5.1); Sodium 137 mmol/L (135-145); Total Protein 6.6 g/dL (6.5-8.0)
--- OUTSIDE RECORDS SUMMARY | 2025-08-13 16:31 | XMS_ITS | Encounter Summary ---
Author Organization [facility] Address [address] [place] [address] Phone Care Team Providers Care Capper Machine Operator Name Role Phone Serg Hayes MD Primary Care Provider [phone] Rafael Reese MD Unavailable [phone] Francisco Azar MD Unavailable [email or web address] Serg Hayes MD Unavailable [phone] Reid Galloway MD Unavailable [phone] Jackson Hardin MD, MS Unavailable [phone] Sherron Grey ESTHETICIAN SPA Unavailable [phone] Bhavesh Murphy MD Unavailable [phone] Pcp, Unknown Primary Care Provider Unavailabl Xavier Hinkle MD Primary Care Provider [phone] Encounter Details Date Type Department Care Team (Late st Contact Info) Description 04/10/2019 Procedure Pass [facility] [address] [place] [address] Social History Tobacco Use Types Packs/Day Years Used Date Smoking Tobacco: Former Cigarettes 2 15 Smokeless Tobacco: Never Comments:quit 33 years ago Alcohol Use Standard Drinks/Week Comments No 0 (1 standard drink = 0.6 oz pur e alcohol) Sex and Gender Information Value Date Recorded Sex Assigned at Not on file Legal Sex Male 4:46 PM EDT Gender Identity Not on file Sexual Orientation Not on file documented as of this encounter Plan of Treatment Not on file documented as of this encounter Visit Diagnoses Not on filedocumented in this encounter Additional Health Concerns Assessment Noted Time PHQ-2 Depression Total Score: 0 09/01/20 18 9:02 AM EST documented as of this encounter Care Teams Capper Machine Operator Relationship Specialty Start Date End Date Serg Hayes MD [address] [place] [phone] [email or web address] PCP - General 07/21/17 07/29/20 Pcp, Unknown PCP - General 07/30/20 07/28/21 Xavier Finn MD PCP - General Internal Medicine 07/29/21 Rafael Reese MD [address] [place] [id number] [email or web address] Historical LMR Provider 07/21/17 07/29/20 Francisco Azar MD [email or web address] Historical LMR Provider 07/21/17 07/29/20 Serg Hayes MD [address] [place] [id number] [email or web address] Historical LMR Provider 07/21/17 07/29/20 Reid Galloway MD [address] [place] [address] [email or web address] Historical LMR Provider 07/21/17 Jackson Hardin MD, MS [address] [place] [address] Historical LMR Provider 07/21/17 07/29/20 Sherron Grey NP [address] [place] [address] Historical LMR Provider 07/21/1707/29 Bhavesh Murphy MD [address] [place] [address] Historical LMR Provider 07/21/1707/04 documented as of this encounter Additional Source Comments The information contained in this document represents components of the legal health record. It is not the complete legal health record.[facility]
--- OUTSIDE RECORDS SUMMARY | 2025-08-13 16:31 | XMS_ITS | Clinical Summary ---
Author Organization [facility] Address [address] [place] [phone] Phone Care Team Providers Care Court Clerk Name Role Phone Xavier Finn MD Primary Care Provider [phone] Allergies Active Allergy Reactions Criticality Noted Date Comments Latex, Natural Rubber 10/18/2017 Metoprolol Tartrate Palpitations Low 07/29/2021 Mirabegron Palpitations Low 09/01/2018 Oxybutynin 01/02/2019 confusion Pantoprazole Palpitations Low 07/29/2021 Medications cholecalciferol (VITAMIN D3) 400 unit tablet 1 capsule daily Ac tive DENTA 5000 PLUS 1.1 % Crea BRUSH THROROUGHLY TWICE A DAY, SPIT DO NOT RINSE 10/09/19 18 Active mesalamine (ASACOL HD) 800 mg TbEC 1,600 mg 2 (two) times a day before meals. 2 tablets Orally Twice a day Active acetaminophen (TYLENOL) 325 mg tablet 1 tablet as needed Orally BEDTIME PRN Active calcium carbonate-vitamin D3 (CALCIUM 500 + D) 1,250 mg (500 mg elemental)-400 units Tab 1 tablet daily. 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 Active tadalafil (CIALIS) 10 MG tabletIndications: Erectile dysfunction, unspecified erectile dysfunction type Take 1 tablet (10 mg total) by mouth daily as needed. 10 tablet 09/03/20 Active Additional Information Patient not taking.Reported on 10/21/2021 cyanocobalamin, vitamin B-12, 1000 MCG tablet Take 1,000 mcg by mouth daily. Active Active Problems Problem Noted Date Diagnosed Date Pain in right foot 07/31/2021 Corns 07/31/2021 Sprain of right ankle 02/12/2020 Assessment & Plan (02/12/2020 8:29 AM EDT): Likely peroneal ligament strain. Advised and demonstrated how to do muscle strengthening of the ankle as well as consider purchasing a soft ankle support. Consider orthotics. May have some underlying osteoarthritis. If continues to be symptomatic and cannot bear weight will call me for a injection. We will do an x-ray if still symptomatic when I see him later this summer. Bilateral primary osteoarthritis of knee 019 Assessment & Plan (06/25/2020 8:44 AM EDT): Severe bilateral right greater than left knee osteoarthritis. Having really very little disability but really not walking too much. Stressed necessity for at least 20 to 40 minutes of weightbearing exercise a day. Vitamin D level is therapeutic and he will remain on Multivite's and vitamin D. I would like to see him next year. A bone densitometry will be done next year when I see him as well. Fall and fracture prevention strategies discussed. 15 minutes spent on this telephone/telemedicine visit in direct contact with the patient. Assessment & Plan (02/12/2020 8:28 AM EDT): Elizabet from 2016 indicating advanced osteoarthritis in the tricompartmental distribution on the right with moderate arthritis on the left. Minimally symptomatic. Continue to treat with well fitting supportive shoes, quadricep strengthening and acetaminophen. Assessment & Plan (07/18/2019 9:35 AM EDT): Reviewed the x-ray indicating right greater than left advanced medial compartment osteoarthritis and patellofemoral disorder. He is doing rather well. We discussed the natural history and treatment of osteoarthritis of the knee including quadricep strengthening and well fitting supportive shoes with good shock absorption and if necessary intra-articular steroids or Visco supplementation. I reviewed his last lab work which did show a hemoglobin of 12.9 with a hematocrit of 40.4 and a white count of 4000 which was normal. His BUN was 18 with a creatinine of 1.1 and a glucose of 87. Assessment & Plan (04/10/2019 3:21 PM EDT): Reviewed x-rays of his knees indicating that on the right knee there is complete obliteration of the medial compartment with [id number] as well as osteophytosis and sharpening the tibial spines where the left knee shows still some small amount of medial compartment cartilage left but again diffuse osteoarthritis considered moderately severe bilaterally. We will continue to work on strengthening his quadriceps musculature and wear well fitting supportive shoes. Assessment & Plan (01/02/2019 8:56 AM EDT): Knees are painful and stiff. We will continue current medication regimen. Obtain bilateral weightbearing x-rays today. Suggested physical therapy in the near future which he would like to wait on for now. Try CBD ointment twice daily rubbed in well to both knees. Greater than 50% of this 28-minute visit was spent in [id number] conversation with the patient coordinating my care with out of the physical therapist, primary care physician, and orthopedist if necessary. Sacroiliac dysfunction 10/02/2018 Assessment & Plan (07/18/2019 9:35 AM EDT): Continued bilateral hip pain is likely secondary to his sacroiliac dysfunction. I did review the MRI of the lumbar spine which showed no evidence evidence of lumbar spinal stenosis but he does show lower lumbar facet arthropathy which may also be referred to the hip area. Core strengthening heat and Tylenol the best treatment for this at this time. Assessment & Plan (10/02/2018 9:05 AM EST): I reviewed with him the x-rays of the lumbosacral spine showing moderately severe facet arthropathy and discogenic disease between L4-5 and L5-S1. There was also some osteoarthritic changes in the lower portion of the sacroiliac joints left greater than right. I reviewed the x-rays of both of his hips which showed femoral acetabular impingement with lateral osteophytes and some mild osteoarthritic changes bilaterally. No evidence of osteonecrosis. I believe much of this pain is referred from his lower lumbar facet on the left between L5 and S1 as well as his sacroiliac joint. He has some mild restriction in external rotation due to some lateral hip disease but I do not feel that this is the cause of his pain. He is to sleep with a pillow between his legs. He will be referred to physical therapy. He will call me after he finishes 8 sessions and if there is no trend towards improvement I would like to do a referral to pain management and consider a fluoroscopically guided injection into his left sacroiliac joint. Continue to use acetaminophen as needed for pain not exceeding 1500 mg daily. Greater trochanteric bursitis of left hip 2017 Assessment & Plan (08/22/2018 9:06 AM EST): I explained the natural history of this to him today. I gave him the choice between physical therapy and the local injection along with iliotibial band stretching and he chose a local injection. He will call me in 72 hours to let me know if his progress. Acquired hypothyroidism 08/30/2017 Arteriosclerotic cardiovascular disease 08/30/20 17 CHF (congestive heart failure) 08/30/2017 Chronic obstructive pulmonary disease 08/30/2017 History of pleurisy 08/30/2017 Hoarseness 08/30/2017 Paroxysmal atrial fibrillation 08/30/2017 Assessment & Plan (10/18/2017 9:18 AM EST): He is now back in normal sinus rhythm after successful ablation Osteopenia 08/30/2017 Assessment & Plan (02/12/2020 8:27 AM EDT): Borderline osteopenia on review of bone density in 2015. We will repeat it next year. Continue vitamin D3 1000 units daily. Fall and fracture prevention strategies discussed. Assessment & Plan (07/18/2019 9:33 AM EDT): Reviewed bone densitometry indicating osteopenia in the vertebrae with normal hip density. Fall and fracture prevention strategies and maintenance of vitamin D3 was discussed with him today. I like to do the bone density study again in 2019. Assessment & Plan (01/02/2019 8:54 AM EDT): Need for pharmacologic intervention but again I stressed the compliance with vitamin D3 and several brief periods of walking during the day totaling about 1 hour. Assessment & Plan (10/02/2018 9:03 AM EST): Reviewed last bone density. Diffuse osteopenia of a mild nature will continue to be handled with daily vitamin D as well as a fall and fracture prevention strategies. Assessment & Plan (08/22/2018 9:07 AM EST): Mild diffuse osteopenia. Actually borderline normal. Last scan done in September 2016 showed a right hip T score of -0.4 with a mean lumbar T score of 0.6 and a left hip T score of 0.1. He will have another bone densitometry in 2 years. Assessment & Plan (02/16/2018 8:58 AM EDT): I reviewed previous bone densitometry in September 2016. He had some borderline osteopenia in the spine. Fall and fracture prevention strategies were discussed. He will maintain vitamin D3 at 1000 units daily. He does not need a repeat bone densitometry this year. Assessment & Plan (10/18/2017 9:17 AM EST): I reviewed with him his last bone densitometry which looked quite good with a T score in the lumbar spine +0.6 and in the left hip of -0.6. I also reviewed lab work with him showing a hemoglobin of 11.2 with a white count of 4500, platelet count 228,000, and a hematocrit of 32.4. Fall and fracture prevention strategies were discussed. He will remain on vitamin D3. Ulcerative colitis 08/30/2017 Assessment & Plan (07/18/2019 9:34 AM EDT): No diarrhea, melena, hematochezia, night sweats chills or weight loss. He is on Asacol. His ulcerative colitis is quite. Assessment & Plan (10/02/2018 9:05 AM EST): Under good control. Assessment & Plan (02/16/2018 8:57 AM EDT): And treatment by gastroenterology and quiet without melena hematochezia fever or weight loss or diarrhea. Assessment & Plan (10/18/2017 9:17 AM EST): Bowel movements are well formed and there is no melena or hematochezia. He denies any abdominal pain. He gets regular follow-up with his special procedure tech. 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 From what I see today, he will stay off the medication. I will see him back in 6 months. I reviewed most recent laboratory with him from August of last year indicating a hemoglobin of 12.5 with a hematocrit of 37.1 with a white count of 3900 with a normal differential and a creatinine of 1.0 with an AST of 31 and an ALT of 20 and a TSH of 0.82. Assessment & Plan (10/18/2017 9:16 AM EST): Patient has been off hydroxychloroquine for several months and has seen no worsening of his symptoms. 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 He has not had a flare of his inflammatory arthritis, his ulcerative colitis has been stable, his xerostomia is mild and well-controlled and he only uses rarely mseg-duy-[id number] artificial tears for his dry eyes. We will continue him off of the plaque were normal and now. Immunizations Immunization Administration Dates Next Due INFLUENZA, SPLIT VIRUS, TRIVALENT PF 08/06/2015 Influenza High-Dose Trivalen t Preservative Free IM 07/19/2019,06/20/2018,07/28/2016 Influenza, Unspecified Formulation 07/04/2020 Pneumococcal conjugate PCV13 09/03/2016 Pneumococcal polysaccharide PPSV23 09/03/2019, Tdap 06/05/2014 Zoster live 08/30/2011 Social History Tobacco Use Types Packs/Day Years Used Date Smoking Tobacco: Former Cigarettes 2 15 Smokeless Tobacco: Never Comments:quit 33 years ago Alcohol Use Standard Drinks/Week Comments No 0 (1 standard drink = 0.6 oz pur e alcohol) Education Answer Date Recorded Are you interested in more education? Not on corina e 01/13/2025 Are you concerned about learning? Not on file 01/13/2025 No 01/13/2025 No 01/13/2025 Digital Access Answer Date Recorded No 01/13/2025 No 01/13/2025 Reliable internet access at home? Not on file 01/13/2025 Device with a working camera? Not on file Sex and Gender Information Value Date Recorded Sex Assigned at Not on file Legal Sex Male 4:46 PM EDT Gender Identity Not on file Sexual Orientation Not on file Last Filed Vital Signs Vital Sign Reading Time Taken Comments Blood Pressure 102/58 10/21/2021 8:30 AM EST Pulse 48 09/03/2019 4:05 PM EST Temperature 36.8 C (98.2 F) 09/03/2019 4:05 PM EST Respiratory Rate 16 09/03/2019 4:05 PM EST Oxygen Saturation 98% 09/03/2019 4:05 PM EST Inhaled Oxygen Concentration - - Weight 76.6 kg (168 lb 12.8 oz) 10/21/2021 8:30 AM EST Height 177.8 cm (5' 10 ) 10/21/2021 8: 30 AM EST Body Mass Index 24.22 10/21/2021 8:30 AM EST Plan of Treatment Health Maintenance Due Date Last Done Comments SMOKING Hx and SMOKELESS TOBACCO SCREENING 1964 COLOGUARD 1996 FIT TEST 1996 FOBT 1996 SIGMOIDOSCOPY 1996 VIRTUAL COLONOSCOPY 1996 RSV VACCINE (1 - Risk 50-74 years 1-dose series) 2001 ZOSTER VACCINES (2 of 3) 10/25/2011 08/30/2011 ABDOMINAL AORTIC ANEURYSM (AAA) SCREENING 2016 COLONOSCOPY 11/28/2016 11/28/2013 COLORECTAL CANCER SCREENING 11/28/2016 LIPID PANEL 09/28/2019 09/28/2018, 08/30/2017 DEPRESSION SCREENING 09/03/2020 09/03/2019 CREATININE LEVEL 10/02/2020 10/02/2019, 05/2019, 09/01/2018, Additional history exists TSH LEVEL 12/05/2020 12/06/2019, 09/04, 08/31/2018, Additional history exists Adult Td,Tdap Booster 06/05/2024 06/05/2014 INFLUENZA VACCINE (#1) 2025 , 07/24/2021, 08/03/2020, Additional history exists COVID-19 VACCINE ( season) 2025 07/24/2021, 12/20/2020, 11/29/2020 PNEUMOCOCCAL VACCINES (50+ years) Completed 09/03/2019, 09/03/2016, 06/05/2014 HEPATITIS C SCREENING Completed 10/02/2019 HEPATITIS A VACCINES Aged Out No long er eligible based on patient's age to complete this topic HIB VACCINES Aged Out No longer eligi ble based on patient's age to complete this topic IPV VACCINES Aged Out No longer eligi ble based on patient's age to complete this topic MENINGOCOCCAL VACCINES (ACWY) Aged Out No longer eligible based on patient's age to complete this topic MENINGOCOCCAL VACCINES (B) Aged Out N o longer eligible based on patient's age to complete this topic Medical Devices Not on file Procedures Procedure Name Priority Date/Time Associated Diagnosis Comments THYROID STIMULATING HORMONE (TSH) Routine 12/06/2019 HEPATITIS C ANTIBODY, QUALITATIVE Routine 10/02/2019 COMPREHENSIVE METABOLIC PANEL (CMP) Routine 10/02/2019 OUTSIDE LDL Routine 09/28/2018 HM COLONOSCOPY FOR RESULT ENTRY ONLY Routine 11/28/2013 from Last 3 Months or Most Recently Relevant to Health Maintenance Results * TSH (12/06/2019) Serg Hayes MD LAB BLOOD BKR ORDERABLES Edit ed Result - Final * Comprehensive metabolic panel (10/02/2019) Serg Hayes MD LAB BLOOD BKR ORDERABLES Edit ed Result - Final * Hepatitis C antibody, qualitative (10/02/2019) Serg Hayes MD LAB BLOOD BKR ORDERABLES Edit ed Result - Final * Outside LDL (09/28/2018) Lisset Pro MD LAB BLOOD ORDERABLES Edit ed Result - Final * COLONOSCOPY FOR RESULT ENTRY ONLY (11/28/2013) [facility] Signature Colonoscopy normal Historical Inocencia [employer] MAINTENANCE Final Result from Last 3 Months or Most Recently Relevant to Health Maintenance Insurance MEDICARE A BLUE CROSS OUT OF STATE [place] MEDICARE A BLUE [place] [facility]IC[facility] A BLUE [place] [facility] MEDIC[facility] A BLUE [place] [facility] MEDICARE [facility] BLUE [place] OUT [facility] MEDICARE A BLUE [place] OUT [facility] MEDICARE A BLUE CROSS OUT OF [facility] MEDICARE A BLUE CROSS OUT OF STATE O MEDICARE A Care Teams Court Clerk Relationship Specialty Start Date End Date Xavier Finn MD PCP - General Internal Medicine 07/29/21 Additional Source Comments The information contained in this document represents components of the legal health record. It is not the complete legal health record.[facility]
--- OUTSIDE RECORDS SUMMARY | 2025-08-13 16:32 | XMS_ITS | Continuity of Care Document ---
Author Organization [place] - [facility], [facility] Address [address] [place] [address] Care Team Providers Care Supervisor Unloading Name Role Phone DAVID CARVER Primary Care Provider Assessment Encounter Date Assessment Date Assessment LastModified by Organization Details LastModified Time 05/14/2025 05/14/2025 Martin is a 74-year-old male who presents today for follow-up from prior hearing test showing asymmetrical sensorineural hearing loss. This is right greater than left. Overall his hearing is normal downsloping to moderate severe bilaterally. We discussed that per Academy guidelines when a patient has an asymmetric loss we recommend MRI for evaluation of the IACs for potential retrocochlear pathology. If the MRI comes back negative in the future, I believe they would be a good candidate for hearing amplification. We discussed that the patient would be an excellent candidate for hearing amplification and discussed its benefits which include improved hearing, potential tinnitus reduction, reduction in the rate of cognitive decline, and reduction in the prevalence of depression or mental health disorders. -RV 1-2 months to discuss MRI and potential Amplification clearance [email or web address] Not available 05/14/2025 13:12:47 Plan of Treatment Reminders Order Date Submit Date Provider Last Modified By Organization Details Last Modified Time Details Appointments None recorded. Lab None recorded. Referral None recorded. Procedures None recorded. Surgeries None recorded. Imaging MRI, brain + internal auditory canal, w/wo contrast - next available ....IAC protocol 2024 025 pgustavson [facility], [address], [place], [address], 12:40:32 Medication Orders None recorded. Patient TargetsNo targets recorded. Patient InstructionsNo instructions recorded. Reason for Referral None Reported. Results Created Date Observation Date Name Description Value Unit Range Abnormal Flag Note LastModifiedBy Organization Detail LastModifiedTime 06/26/2006/25/2025 MRI, brain + inter nal audit ory canal , w/wo contr ast No observ ation record ed. ccomi [facility] [address] [facility] [address], [place], [address], 06/28/2025 16:29:48 Result Notes None recorded. Problems Name Problem SNOMED Code Status Onset Date Resolution Date Notes Provider Name and Address Organization Details Recorded Time Dysphagia 74084390 Active 2015 Dysphagia , unspecifi ed; Note: Date Diagnosed : 07/01/2016 11:18 AM (R13.10) Not Available [facility] 4 02:26:37 Dysphonia 57432086 Active 2015 Other voice and resonance disorders ; Note: Date Diagnosed : 09/03/2016 4:46 PM (R49.8) Not Available [facility] 4 02:26:23 Finding of resonance of voice 113242149 Active 2015 Other voice and resonance disorders ; Note: Date Diagnosed : 09/03/2016 4:46 PM (R49.8) Not Available [facility] 4 02:26:23 Bilateral tinnitus 16340035381 02 Active 2024 Johnathon Montemayor DO [address] [facility],[place] [address], [place], [address] , [place] - [facility] 5 09:25:24 Tinnitus 30310803 Active 2024 Johnathon Montemayor DO [address] [facility],[place] [address], [place], [address] , [place] - [facility] 5 09:25:24 Sensorine ural hearing loss 64587767 Active 2024 Johnathon Montemayor DO [address] [facility],[place] [address], [place], [address] , [place] - [facility] 5 09:25:24 Asymmetri elliott sensorine ural hearing loss 377146645 Active 2024 Johnathon Montemayor, DO [address] [facility] [address], [place], [address] , [facility] - [facility] 13:13:11 Problem Notes None recorded. Medical Equipment None Reported. Medications Name Sig Start Date Stop Date Status Note LastModified by Organization Details LastModified Time levothyro xine 175 mcg tablet 05/14 completed Medicati on ID: [id number] D uration Value: 90 Brand Name: levothyr oxine Se nd Method: E-Prescr ibed Sub s Allowed: subs OK Medic ationGen ericName : levothyr oxine Not Available Not Available Not Available midodrine 5 mg tablet TAKE 1 TABLET BY MOUTH TWICE A DAY active Not Available Not Available No t Available digoxin 250 mcg (0.25 mg) tablet 05/14 completed Medicati on ID: [id number] D uration Value: 30 Brand Name: digoxin Send Method: E-Prescr ibed Sub s Allowed: subs OK Medic ationGen ericName : digoxin Not Available Not Available Not Available acetamino phen 500 mg tablet TAKE 2 TABLETS BY MOUTH EVERY 6 HOURS NEEDED FOR PAIN active Not Available Not Available No t Available amoxicill in 500 mg tablet TAKE 1 TABLET BY MOUTH THREE TIMES A DAY 05/01 completed Not Available Not Available Not Available levothyro xine 25 mcg tablet TAKE 1 TABLET BY MOUTH EVERY DAY active Not Available Not Available No t Available tamsulosi n 0.4 mg capsule TAKE 1 CAPSULE BY MOUTH EVERYDAY AT BEDTIME active Not Available Not Available No t Available levothyro xine 150 mcg tablet TAKE 1 TABLET BY MOUTH EVERY DAY. active Not Available Not Available No t Available flecainid e 50 mg tablet 05/14 completed Medicati on ID: [id number] D uration Value: 90 Brand Name: flecaini de Send Method: E-Prescr ibed Sub s Allowed: subs OK Speci al Instruct ion: TAKE 1 TABLET BY MOUTH TWICE A DAY Medi cationGe nericNam e: flecaini de Not Available Not Available Not Available furosemid e 20 mg tablet TAKE 1 TABLET BY MOUTH EVERY DAY NEEDED FOR EDEMA,CA N REDUCE IF EDEMA RESOLVES active Not Available Not Available No t Available hydroxych loroquine 200 mg tablet 05/14 completed Medicati on ID: [id number] D uration Value: 90 Brand Name: hydroxyc hloroqui ne Send Method: E-Prescr ibed Sub s Allowed: subs OK Medic ationGen ericName : hydroxyc hloroqui ne Not Available Not Available Not Available polyethyl joselito glycol 3350 17 gram/dose oral powder MIX 17 GRAMS WITH WATER AND DRINK ONCE DAILY NEEDED FOR CONSTIPA TION 05/14 completed Not Available Not Available Not Available oxybutyni n chloride 5 mg tablet 05/14 completed Medicati on ID: [id number] D uration Value: 30 Brand Name: oxybutyn in chloride Send Method: E-Prescr ibed Sub s Allowed: subs OK Medic ationGen ericName : oxybutyn in chloride Not Available Not Available Not Available amoxicill in 875 mg-potass ium clavulana te 125 mg tablet TAKE 1 TABLET BY MOUTH EVERY 12 HOURS FOR 7 DAYS 05/01 completed Not Available Not Available Not Available oxycodone 5 mg tablet TAKE 1 TABLET BY MOUTH EVERY 6 HOURS NEEDED FOR PAIN 05/14 completed Not Available Not Available Not Available Denta 5000 Plus 1.1 % cream USE DIRECTED active Not Available Not Available No t Available azithromy fan 500 mg tablet TAKE 1 TABLET BY MOUTH EVERY DAY FOR 3 DAYS 05/01 completed Not Available Not Available Not Available Vitamin D3 25 mcg (1,000 unit) capsule active Medicati on ID: [id number] B rand Name: Vitamin D3 Send Method: E-Prescr ibed Sub s Allowed: subs OK Medic ationGen ericName : Vitamin D3 Not Available Not Available Not Available mesalamin e 1.2 gram tablet,de layed release TAKE 2 TABLETS BY MOUTH TWICE A DAY active Not Available Not Available No t Available mesalamin e 800 mg tablet,de layed release 05/14 completed Medicati on ID: [id number] D uration Value: 90 Brand Name: mesalami ne Send Method: E-Prescr ibed Sub s Allowed: subs OK Medic ationGen ericName : mesalami ne Not Available Not Available Not Available Vit C(ascorb. calcium)( mv-mins)1 ,000 mg oral effervesc ent powder packet active Medicati on ID: [id number] B rand Name: Vitamin C Send Method: E-Prescr ibed Sub s Allowed: subs OK Medic ationGen ericName : Vitamin C Not Available Not Available Not Available Centrum Silver 400 mcg-250 mcg chewable tablet active Medicati on ID: [id number] B rand Name: Centrum Silver S end Method: E-Prescr ibed Sub s Allowed: subs OK Medic ationGen ericName : Centrum Silver Not Available Not Available Not Available Citracal- D3 Slow Release 600 mg-12.5 mcg (500 unit) tablet,ex tend. rel active Medicati on ID: [id number] B rand Name: Citracal + D Slow Release Send Method: E-Prescr ibed Sub s Allowed: subs OK Medic ationGen ericName : Citracal + D Slow Release Not Available Not Available Not Available Xarelto 20 mg tablet TAKE 1 TABLET BY MOUTH DAILY. active Not Available Not Available No t Available Gemtesa 75 mg tablet TAKE 1 TABLET BY MOUTH DAILY active Not Available Not Available No t Available Vitals Date Recorded Body height Body mass index (BMI) Body weight Provider Name and Address Organization Details Last Updated DateTime 05/14/2025 177.8 cm 24.4 kg/m2 48046.7 g OFELIA COPPOLA MD - [facility] 05/14/2025 13:00:29 Social History None recorded. Functional Status None recorded. Mental Status None recorded. Family History Nothing Reported. Medical History No medical history recorded. Past Encounters Encounter ID Performer Location Encounter Start Date Encounter Closed Date Diagnosis/Indication Diagnosis SNOMED-CT Code Diagnosis ICD10 Code Diagnosis IMO Codes Diagnosis Note [id number] Johnathon Montemayor, DO [facility] [address] [address] 05/14/2025 12:41:10 05/14/2025 13:15:49 Tinnitus 84266298 H93.11 H93.12 Bilateral tinnitus 64138 27718 102 H93.13 Asymmetric al sensorineural hearing loss 423090493 H90.3 993884 R>L Health Concerns Section Related Observation LastModified by Organization Detai ls LastModified Time None Recorded Concern Status LastModified by Organization Details LastModified Time None Recorded Payers Encounter Date Sequence Insurance Name Policy Number Policy Young Covered Member ID Young Member ID Guarantor Name 05/14/2025 1 [facility]: BLUE CHOICE PLAN 2 (POS) [id number] H Martin Omalley [id number] Martin Omalley Notes Date Note Type Note Provider Name and Address Organization Details Recorded Time 05/14/2025 text/html ROS as noted in the HPI Martin is a very pleasant 74-year-old male who presents today for subjective right greater than left hearing loss that has progressed over the last few years. Has been going on for years worse over last 2-3 years. No tinnitus or vertigo. No otalgia, drainage. Does have a-fib so gets dizzy with activity sometimes. Prior outside audiogram from 01/2025 was personally reviewed and interpreted which showed normal downsloping to moderate severe sensorineural hearing loss right worse than left. Type a tymps at that time. Johnathon Montemayor, DO [address] [address], [place], [address], [facility] - [facility] 05/14/2025 13:15:11
--- OUTSIDE RECORDS SUMMARY | 2025-08-13 16:32 | XMS_ITS | Patient Health Record ---
Author Organization [facility] Address [address] [place] [address] Care Team Providers Care Watch Repairer Apprentice Name Role Phone Sol Fair Primary Care Provider U reenarenard Carley Ingram Unavailable [phone] Allergies Allergen (clinical drug ingredient) Drug/Non Drug Allergy documented on EMR Reaction Allergy Type Onset Date Status pantoprazole Pantoprazole Unknown Drug Allergy A ctive mirabegron Myrbetriq Unknown Drug Allergy Active Oxybutynin Unknown Drug Allergy Active Latex Latex (uncoded) Unknown Allergy Acti ve Results Component Value Reference Range Notes Complete Blood Count Auto Di ff (Not yet reviewed by provider) Interpretation: Performing Lab:[facility], [address] [place] [address] Notes/Report: White Blood Count 4.3 4.8-10.8 X10*3/uL Red Blood Count 3.39 4.60-5.80 X10*6/uL Hemoglobin 11.5 14.0-18.0 g/dl Hematocrit 34.8 42.0-52.0 % Mean Corpuscular Volume 102.7 80.0-98.0 fL Mean Corpuscular Hemoglobin 33.9 27.0-33.0 pg Mean Corpuscular HGB Conc 33.0 31.0-36.0 g/dl Red Cell Distribution Width 13.8 11.0-16.0 % Platelet Count 287 160-400 X10*3/uL Mean Platelet Volume 9.5 9.4-12.4 fL Neutrophils Percent Auto 56.0 45-73 % Imm Gran Pct Auto 0.5 0.0-0.4 % Lymphocytes Percent Auto 25.6 20-40 % Monocytes Percent Auto 16.2 2-11 % Eosinophils Percent Auto 1.2 0-4 % Basophils Percent Auto 0.5 0-2 % NRBC Pct Auto 0.0 0.0-0.2 /100WBC Neutrophils Absolute Auto 2.4 2.0-8.3 x10*3/u L Imm Gran Abs Auto 0.02 0.00-0.03 X10*3/uL Lymphocytes Absolute Auto 1.1 1.2-4.9 X10*3/u L Monocytes Absolute Auto 0.7 0.1-1.2 X10*3/uL Eosinophils Absolute Auto 0.1 0.0-0.4 X10*3/u L Basophils Absolute Auto 0.0 0.0-0.2 X10*3/uL NRBC Abs Auto 0.000 0.0-0.012 X10*3/uL Liver Panel (Not yet reviewe d by provider) Interpretation: Performing Lab:[address] [address] Notes/Report: Bilirubin Total 0.5 0.0-1.0 mg/dL Bilirubin Direct 0.2 0.0-0.5 mg/dL Aspartate Amino Transferase 25 5-37 U/L Alanine Aminotransferase 15 0-40 U/L Total Protein 6.6 6.5-8.0 g/dL Albumin Level 4.0 3.5-5.0 g/dL Alkaline Phosphatase 66 39-117 U/L Basic Metabolic Panel (Not y et reviewed by provider) Interpretation: Performing Lab:[address] [address] Notes/Report: Sodium 137 135-145 mmol/L Potassium 4.9 3.3-5.1 mmol/L Chloride 106 96-108 mmol/L Carbon Dioxide 25 22-29 mmol/L Anion Gap 11 12-20 Blood Urea Nitrogen 23 9-16 mg/dL Creatinine 1.25 0.5-1.4 mg/dL Estimated Glomerular Filt Rate 56 Chronic Kidney Disease: Estimated GFR < 60 mL/min/1.73m2 Severe Kidney Disease: Estimated GFR < 15 mL/min/1.73m2 Glucose Random 95 60-115 mg/dL Calcium 9.0 8.4-10.2 mg/dL C Reactive Protein (Not yet reviewed by provider) Interpretation: Performing Lab:[address], [place] [address] Notes/Report: C Reactive Protein 0.34 < or = 0.50 mg/dL Reason For Referral No Information Medications Medication SIG (Take, Route, Frequency, Duration) Notes Start Date End Date Status Tamsulosin HCl 0.4 MG 1 capsule Orally O nce a day Active Levothyroxine Sodium 150 MCG 1 tablet in the morning on an empty stomach Orally Once a day Active Simethicone 500 MG 1 capsule as needed Orally Once a day Active Tylenol 325 MG 1 capsule as needed Orally every night Active Centrum - as directed Orally A ctive Multivitamins - 1 tablet Orally Once a day Active Vitamin D3 400 UNIT 1 tablet Orally Once a day Active Vitamin C 500 MG 1 tablet Orally twic e a day Active Citracal +D3 250-107-500 MG-MG-UNIT as directed Orally Active Vitamin B12 100 MCG as directed Orally Active predniSONE 5 MG 8 of the 5mg pills(40mg) daily for 1 week, and then decrease by 1 pill(5mg) per week Orally Once a day; Duration: 56 days 08/13/2025 Active Acetaminophen 325 MG 1 tablet as needed Orally every 4 hrs Active Mesalamine 1000 MG 1 suppository at bedtime Rectal QHS; Duration: 30 day(s) 10/24/2020 Not-Taking Gemtesa 75 MG 1 tablet Orally Once a day; Duration: 30 day(s) Active Midodrine HCl 5 MG 1 tablet Orally Twic e a day Active Iron 325 (65 Fe) MG 1 tablet Orally Once a day Active Xarelto 20 MG TAKE 1 TABLET BY YOEL TH IN THE EVENING WITH A MEAL Oral; Duration: 90 Active Mesalamine 1.2 GM TAKE 2 TABLETS BY [facility] TWICE A DAY; Duration: 90 Active Furosemide 20 MG 1 tablet Orally Once a day Active Immunizations Vaccine Route Administration Date Status Comme nts Influenza Unknown 08/01/2018 Administered Influenza Unknown 08/03/2020 Administered Influenza Unknown 08/03/2021 Administered Influenza Unknown 08/23/2023 Administered Influenza Unknown 06/19/2024 Administered Social History Tobacco Use: Social History Observation Description Date Details (start date - stop date) Former Smoker NA - NA Tobacco Use/Smoking Question Answer Notes Patient is a former smoker How long has it been since you last smoked? > 10 years Section Notes: Nonsmoker; no alcohol Nonsmoker; no alcohol Nonsmoker; no alcohol Nonsmoker; no alcohol Nonsmoker; no alcohol Nonsmoker; no alcohol Nonsmoker; no alcohol Nonsmoker; no alcohol Nonsmoker; no alcohol Nonsmoker; no alcohol Nonsmoker; no alcohol Nonsmoker; no alcohol Nonsmoker; no alcohol Nonsmoker; no alcohol Problems Problem Type SNOMED Code ICD Code Onset Dates Problem Status W/U Status Risk Notes Problem Colon cancer screening (693230860) Colon cancer screening (Z12.11) Active confirmed Problem Diarrhea (01437978) Diarrhea (R19.7) Active con firmed Problem Weight loss (034037085) Weight loss (R63.4) Active confirmed Problem Diverticular disease of colon (060028204) Diverticulosis of large intestine without perforation or abscess without bleeding (K57.30) Active confirmed Problem History of gastrointestinal tract bypass (518214324) Intestinal bypass and anastomosis status (Z98.0) Active confirmed Problem Iron deficiency anemia due to chronic blood loss (223002821) Iron deficiency anemia due to chronic blood loss (D50.0) Active confirmed Problem Iron deficiency anemia (06747000) Iron deficiency anemia, unspecified iron deficiency anemia type (D50.9) Active confirmed Problem Chronic ulcerative pancolitis (983963518) Ulcerative pancolitis without complication (K51.00) Active confirmed Problem Dysphagia (20019275) Dysphagia, unspecified type (R13.10) Active confirmed Problem Ulcerative colitis (69861618) Ulcerative colitis (K51.90) Active confirmed Problem Abnormal findings diagnostic imaging of liver and biliary tract (412664684) Abnormal computerized tomography of biliary tract (R93.2) Active confirmed Problem Ulcerative pancolitis (751022440) Ulcerative pancolitis (K51.00) Active confirmed Vital Signs Temperature 98.6 degrees Fahrenheit 06/26/2025 Blood pressure diastolic 01 mm Hg 06/26/2025 Height 71.25 in 06/26/2025 Blood pressure systolic 001 mm Hg 06/26/2025 Weight 167 lbs 06/26/2025 BMI 23.13 kg/m2 06/26/2025 Encounters Encounter Location Date Provider Diagnosis [facility] [address] [place] [address] 06/26/2025 Carley Ingram Ulcerative pancoliti s without complication K51.00 [facility] [address] [place] [address] 08/12/2025 Carley Ingram Diarrhea R19.7 and Ulcerative colitis K51.90 [facility] [address] [place] [address] 11/23/2024 Carley Ingram Assessments Encounter Date Diagnosis (ICD Code) Assessment Notes Treatment Notes Treatment Clinical Notes Section Notes 06/26/2025 Ulcerative pancolitis without complication (ICD-10 - K51.00) Continue the same Mesalamine regimen of a total of 4 every day Repeat colonoscopy in 2026 Use some Metamucil and/or a stool softener like Miralax daily with a lot of fluids to prevent constipation 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 His ulcerative colitis remains in clinical remission on the current regimen of the mesalamine. We did review the findings on his colonoscopy from 1 year ago and I advised him of the need for another colonoscopy for further screening and surveillance in 2026. I did advise him to continue his current regimen of the mesalamine at 4.8 g daily. I did advise him to add a daily dose of Metamucil and/or MiraLAX with plenty of fluids to his regimen to see if that can help prevent episodes of constipation. If things otherwise remain well I will plan to see Dr. Omalley in 1 year for a follow-up office visit. I did advise him to certainly call in the interim if he has any problems or questions I can be of assistance with. Dr. Omalley was comfortable with this plan. Thank you again for allowing me to participate in Dr. Omalley's care. I shall continue to keep you advised of his progress. 08/12/2025 Diarrhea (ICD-10 - R19.7) 08/12/2025 Ulcerative colitis (ICD-10 - K51.90) Plan Of Treatment Pending Test Test Name Order Date CHEM 7 PROFILE 08/12/2025 LIVER PROFILE 08/12/2025 LIVER PROFILE 12/08/2022 IRON + IBC (FE) 12/28/2016 IRON + IBC (FE) 10/08/2016 FERRITIN 12/28/2016 FERRITIN 10/08/2016 CRP 08/12/2025 VITAMIN B12 AND FOLATE 10/08/2016 CBC w DIFF 08/12/2025 CBC w DIFF 10/08/2016 CBC w DIFF 12/28/2016 SED RATE (ESR) 08/12/2025 CA 19-9 12/08/2022 MRI ABD NO CONTRAST (MRCP) 12/08/2022 XR BARIUM SWALLOW-ESOPHAGUS 05/11/2016 C DIFFICILE RFLX PCR 08/12/2025 Complete Blood Count Auto Diff Liver Panel 08/13/2025 Basic Metabolic Panel 08/13/2025 C Reactive Protein 08/13/2025 Amylase 12/08/2022 Lipase 12/08/2022 Calprotectin, Fecal 08/12/2025 GI PANEL 08/12/2025 Future Test Test Name Order Date COLONOSCOPY 08/01/2013 UPPER GI ENDOSCOPY 10/08/2016 COLONOSCOPY 10/08/2016 COLONOSCOPY 10/24/2020 COLONOSCOPY 02/29/2024 Next Appt Details Provider Name:Carley Ingram , 07/01/2026 09:10:00 AM, [address] [place] [address], [address], [place], [address], Insurance Providers Payer Name Payer Address Payer Phone Subscriber Number Group Number Insured Name Patient Relationship to Insured Coverage Start Date Coverage End Date [facility] [address] [place], [place] [id number] CARLEY OMALLEY Self - patient is the insured Medical (General) History Medical History History ICD Code Inflammatory bowel disease w ith colitis diagnosed in [address] Glover-the colonoscopy report describes a pancolitis, most consistent with ulcerative colitis- biopsies at that time showed evidence of moderately active colitis as well as some granulomas Nonspecific collagen vascula r disease- Rheumatoid arthritis- followed by Dr. Azar Hypothyroidism History of pneumonia Denies MS,DM,CVA,Lung disease,renal dise ase History of pericarditis EGD and colonoscopy in 0-the upper endoscopy was negative for celiac disease nor any other significant findings; the colonoscopy did not show any active colitis, polyps, nor dysplasia ANGELINET-- unsuccessful ablation in 2011, neg. cardiac cath Orthostatic hypotension Colonoscopy 11/2013-neg. acti ve colitis, neg dysplasia, neg adenomas- small internal hemorrhoids BPH CHF/Uncontrolled Afib in 11/04 017- -started on Eliquis and aspirin- having a cardiac ablation on 03/09/17- successful- - Iron-deficiency anemia- leigh te acid and B12 levels were normal in March of 2018 Colonoscopy in 04/2018 with i nactive colitis, no dysplasia, no polyps, + granulomas seen on the colon biopsies, normal TI Colonoscopy in 12/2020 was negative for a ctive colitis, dysplasia, or polyps Hematuria-seeing Dr. Young as of the OV Negative MRCP in January 23 in regard to slight dilatation of the common bile duct that was seen on a previous CT scan Atrial fibrillation Colonoscopy in June revealed no sign of any active colitis or polyps. Biopsies throughout the colon were all negative for dysplasia. Surgical History Surgery Date(Month/Year) Umbilical hernia Right side inguinal hernia repair Diverticulitis with temp. co lostomy in 2005, operated on by Dr. Humphrey--sigmoid resection
--- OUTSIDE RECORDS SUMMARY | 2025-08-13 16:32 | XMS_ITS | Continuity of Care Document ---
Author Organization [place] - [facility], [facility] Address [address] [place] [address] Care Team Providers Care Bridge Welder Name Role Phone DAVID CARVER Primary Care Provider Assessment Encounter Date Assessment Date Assessment LastModified by Organization Details LastModified Time 07/23/2025 07/23/2025 Martin is a 74-year-old male who presents today for follow-up from prior hearing test showing asymmetrical sensorineural hearing loss. This is right greater than left. Overall his hearing is normal downsloping to moderate severe bilaterally. Prior MRI was negative for retrocochlear pathology - The patient has evidence today of significant hearing loss in both ears, as noted above. We discussed that the patient would be an excellent candidate for hearing amplification and discussed its benefits which include improved hearing, potential tinnitus reduction, reduction in the rate of cognitive decline, and reduction in the prevalence of depression or mental health disorders. Otologic examination today does not reveal any contraindications for the use of hearing amplification. The patient would like to pursue this, I will provide them with medical clearance today. I provided them a list of hearing aid assembly supervisor's within the region to choose from. - RV PRN [email or web address] Not available 07/23/2025 12:48:37 Plan of Treatment Reminders Order Date Submit Date Provider Last Modified By Organization Details Last Modified Time Details Appointments None record ed. Lab None record ed. Referral None record ed. Procedures None record ed. Surgeries None record ed. Imaging None record ed. Medication Orders None record ed. Patient TargetsNo targets recorded. Patient InstructionsNo instructions recorded. Reason for Referral None Reported. Results Created Date Observation Date Name Description Value Unit Range Abnormal Flag Note LastModifiedBy Organization Detail LastModifiedTime 06/26/2006/2506/25/2025 MRI, brain + inter nal audit ory canal , w/wo contr ast No observ ation record ed. [facility] [address] [facility] [address], [place], [address], 06/28/2025 16:29:48 Result Notes None recorded. Problems Name Problem SNOMED Code Status Onset Date Resolution Date Notes Provider Name and Address Organization Details Recorded Time Dysphagia 41919840 Active 2015 Dysphagia , unspecifi ed; Note: Date Diagnosed : 07/01/2016 11:18 AM (R13.10) Not Available [facility], [facility] 4 02:26:37 Dysphonia 64565875 Active 2015 Other voice and resonance disorders ; Note: Date Diagnosed : 09/03/2016 4:46 PM (R49.8) Not Available [facility], [facility] 4 02:26:23 Finding of resonance of voice 329646708 Active 2015 Other voice and resonance disorders ; Note: Date Diagnosed : 09/03/2016 4:46 PM (R49.8) Not Available [facility], [facility] 4 02:26:23 Bilateral tinnitus 18364447005 02 Active 2024 Johnathon Montemayor DO [address] [address], [place], [address] , [facility] - [facility] 5 09:25:24 Tinnitus 60894354 Active 2024 Johnathon Montemayor [address] [address], [place], [address] , [facility] [place] 5 09:25:24 Sensorine ural hearing loss 69371714 Active 2024 Johnathon Montemayor DO [address] [address], [place], [address] , [place] [facility] [place] 5 09:25:24 Asymmetri elliott sensorine ural hearing loss 749520995 Active 2024 Johnathon Montemayor DO [address] [facility],[address] [address], [place], [address] , [place] - [facility] 13:13:11 Problem Notes None recorded. Medical Equipment None Reported. Medications Name Sig Start Date Stop Date Status Note LastModified by Organization Details LastModified Time levothyro xine 175 mcg tablet 05/14 completed Medicati on ID: [id number] D uration Value: 90 Brand Name: levothyr oxine Se nd Method: E-Prescr ibed Sub s Allowed: subs OK Medic ationGen ericName : levothyr oxine Not Available Not Available Not Available midodrine 5 mg tablet TAKE 1 TABLET BY MOUTH TWICE A DAY active Not Available Not Available No t Available digoxin 250 mcg (0.25 mg) tablet 05/14 completed Medicati on ID: [id number] D uration Value: 30 Brand Name: digoxin [...] mg tablet 05/14 completed Medicati on ID: [id number] D uration Value: 90 Brand Name: flecaini [...] mg tablet 05/14 completed Medicati on ID: [id number] D uration Value: 90 Brand Name: hydroxyc [...] mg tablet 05/14 completed Medicati on ID: [id number] D uration Value: 30 Brand Name: oxybutyn [...] (1,000 unit) capsule active Medicati on ID: [id number] B rand Name: Vitamin D3 Send Method: E-Prescr ibed Sub s Allowed: subs OK Medic ationGen ericName : Vitamin D3 Not Available Not Available Not Available mesalamin e 1.2 gram tablet,de layed release TAKE 2 TABLETS BY MOUTH TWICE A DAY active Not Available Not Available No t Available mesalamin e 800 mg tablet,de layed release 05/14 completed Medicati on ID: [id number] D uration Value: 90 Brand Name: mesalami ne Send Method: E-Prescr ibed Sub s Allowed: subs OK Medic ationGen ericName : mesalami ne Not Available Not Available Not Available Vit C(ascorb. calcium)( mv-mins)1 ,000 mg oral effervesc ent powder packet active Medicati on ID: [id number] B rand Name: Vitamin C Send Method: E-Prescr ibed Sub s Allowed: subs OK Medic ationGen ericName : Vitamin C Not Available Not Available Not Available Centrum Silver 400 mcg-250 mcg chewable tablet active Medicati on ID: [id number] B rand Name: Centrum Silver S end Method: E-Prescr ibed Sub s Allowed: subs OK Medic ationGen ericName : Centrum Silver Not Available Not Available Not Available Citracal- D3 Slow Release 600 mg-12.5 mcg (500 unit) tablet,ex tend. rel active Medicati on ID: [id number] B rand Name: Citracal + D Slow [...] t Available Vitals Date Recorded Body height Provider Name an d Address Organization Details Last Updated DateTime 07/23/2025 177.8 cm OFELIA COPPOLA [place] - [facility] 07/23/2025 13:20:49 Social History None recorded. Functional Status None recorded. Mental Status None recorded. Family History Nothing Reported. Medical History No medical history recorded. Past Encounters Encounter ID Performer Location Encounter Start Date Encounter Closed Date Diagnosis/Indication Diagnosis SNOMED-CT Code Diagnosis ICD10 Code Diagnosis IMO Codes Diagnosis Note [id number] Johnathon Montemayor, DO [facility] of [address] [address] 07/23/2025 13:08:11 07/23/2025 13:40:50 Tinnitus 27433058 H93.11 H93.12 Bilateral tinnitus 36782 46282 102 H93.13 Asymmetric al sensorineural hearing loss 472355326 H90.3 [id number] R>L Health Concerns Section Related Observation LastModified by Organization Detai ls LastModified Time None Recorded Concern Status LastModified by Organization Details LastModified Time None Recorded Payers Encounter Date Sequence Insurance Name Policy Number Policy Young Covered Member ID Young Member ID Guarantor Name 07/23/2025 1 [place] CHOICE [place] 2 (POS) [id number] H Martin Omalley [id number] Martin Omalley Notes Date Note Type Note Provider Name and Address Organization Details Recorded Time 07/23/2025 text/html ROS as noted in the HPI Interval history: Overall there is been minimal change in his hearing. Still feels a mild asymmetry between ears. MRI [facility] (06/2025) -the no evidence of retrocochlear abnormalities or alignment 3 number maladies. Generalized mild cerebral volume loss and chronic microvascular ischemia Previous visit: Martin is a very pleasant 74-year-old male [...] at that time. Johnathon Montemayor, DO [address] [facility],[address] [address], [place], [address], [facility] - [facility] 07/23/2025 13:38:47
--- OUTSIDE RECORDS SUMMARY | 2025-08-13 16:32 | XMS_ITS | Data Portability ---
Author Organization [place] - [facility], [facility] Address [address] [address] Care Team Providers Care Health Manager Name Role Phone KATYDAVID TRUJILLO Primary Care Provider Assessment Encounter Date Assessment [...] Amplification clearance [email or web address] Not available 05/14/2025 13:12:47 07/23/2025 07/23/2025 Martin is a 74-year-old male [...] today. I provided them a list of felt hat inspector and packer's within the region to choose from. - [...] next available ....IAC protocol 2024 025 pgustavson [facility] [place], [facility], [address] [address], [place], [address], 12:40:32 Medication Orders None recorded. Patient TargetsNo targets recorded. Patient InstructionsNo instructions recorded. Reason for Referral None Reported. Results Created Date Observation Date Name Description Value Unit Range Abnormal Flag Note LastModifiedBy Organization Detail LastModifiedTime 06/26/20 25 06/25/2025 MRI, brain + inter nal audit ory canal , w/wo contr ast No observ ation record ed. c[facility]i [facility] [place] [address] [address], [place], [address], 06/28/2025 16:29:48 Result Notes None recorded. Problems Name Problem SNOMED Code Status Onset Date Resolution Date Notes Provider Name and Address Organization Details Recorded Time Dysphagia 98223687 Active 2015 Dysphagia , unspecifi ed; Note: Date Diagnosed : 07/01/2016 11:18 AM (R13.10) Not Available [facility] 4 02:26:37 Dysphonia 41858603 Active 2015 Other voice and resonance disorders ; Note: Date Diagnosed : 09/03/2016 4:46 PM (R49.8) Not Available [facility] 4 02:26:23 Finding of resonance of voice 212602318 Active 2015 Other voice and resonance disorders ; Note: Date Diagnosed : 09/03/2016 4:46 PM (R49.8) Not Available [facility] 4 02:26:23 Bilateral tinnitus 17796572214 02 Active 2024 Johnathon Montemayor, DO [address] [facility], [place], [place], [address] , [facility] - [facility] 5 09:25:24 Tinnitus 55027211 Active 2024 Johnathon Montemayor, DO [address] [facility],[address] [address], [place], [address] , [facility] - [facility] 5 09:25:24 Sensorine ural hearing loss 96100777 Active 2024 Johnathon Montemayor, [address] [facility],[address] [address], [place], [place], [address] , [facility] - [facility] [place] 5 09:25:24 Asymmetri elliott sensorine ural hearing loss 345391195 Active 2024 Johnathon Montemayor, [address] [facility],[address] [address], [place], [place], [address] , [facility] - [facility] 5 13:13:11 Problem Notes None recorded. Medical Equipment None Reported. Medications Name Sig Start Date Stop Date Status Note LastModified by Organization Details LastModified Time levothyro xine 175 mcg tablet 05/14 completed Medicati on ID: [id number] D uration Value: 90 Brand Name: levothyr oxine Se nd Method: E-Prescr ibed Sub s Allowed: subs OK Medic ationGen ericName : levothyr oxine Not Available Not Available Not Available midodrine 5 mg tablet TAKE 1 TABLET BY MOUTH TWICE A DAY active Not Available Not Available No t Available digoxin 250 mcg (0.25 mg) tablet 05/14 completed Medicati on ID: [id number] D uration Value: 30 Brand Name: digoxin [...] mg tablet 05/14 completed Medicati on ID: [id number] D uration Value: 90 Brand Name: flecaini [...] mg tablet 05/14 completed Medicati on ID: [id number] D uration Value: 90 Brand Name: hydroxyc [...] mg tablet 05/14 completed Medicati on ID: [id number] D uration Value: 30 Brand Name: oxybutyn [...] (1,000 unit) capsule active Medicati on ID: [id number] B rand Name: Vitamin D3 Send Method: E-Prescr ibed Sub s Allowed: subs OK Medic ationGen ericName : Vitamin D3 Not Available Not Available Not Available mesalamin e 1.2 gram tablet,de layed release TAKE 2 TABLETS BY MOUTH TWICE A DAY active Not Available Not Available No t Available mesalamin e 800 mg tablet,de layed release 05/14 completed Medicati on ID: [id number] D uration Value: 90 Brand Name: mesalami ne Send Method: E-Prescr ibed Sub s Allowed: subs OK Medic ationGen ericName : mesalami ne Not Available Not Available Not Available Vit C(ascorb. calcium)( mv-mins)1 ,000 mg oral effervesc ent powder packet active Medicati on ID: [id number] B rand Name: Vitamin C Send Method: E-Prescr ibed Sub s Allowed: subs OK Medic ationGen ericName : Vitamin C Not Available Not Available Not Available Centrum Silver 400 mcg-250 mcg chewable tablet active Medicati on ID: [id number] B rand Name: Centrum Silver S end Method: E-Prescr ibed Sub s Allowed: subs OK Medic ationGen ericName : Centrum Silver Not Available Not Available Not Available Citracal- D3 Slow Release 600 mg-12.5 mcg (500 unit) tablet,ex tend. rel active Medicati on ID: [id number] B rand Name: Citracal + D Slow [...] Updated DateTime 05/14/2025 177.8 cm 24.4 kg/m2 36368.7 g OFELIA COPPOLA [place] - [facility] 05/14/2025 13:00:29 Date Recorded Body height Provider Name an d Address Organization Details Last Updated DateTime 07/23/2025 177.8 cm OFELIA COPPOLA [place] - [facility] 07/23/2025 13:20:49 Social History None recorded. Functional Status None recorded. Mental Status None recorded. Family History Nothing Reported. Medical History No medical history recorded. Past Encounters Encounter ID Performer Location Encounter Start Date Encounter Closed Date Diagnosis/Indication Diagnosis SNOMED-CT Code Diagnosis ICD10 Code Diagnosis IMO Codes Diagnosis Note [id number] Johnathon Montemayor DO [facility] of [address] [address] 05/14/2025 12:41:10 05/14/2025 13:15:49 Tinnitus 09875932 H93.11 H93.12 Bilateral tinnitus 81654 10973 102 H93.13 Asymmetric al sensorineural hearing loss 272114011 H90.3 [id number] R>L [id number] Johnathon Montemayor DO [facility] of [address] [address] 07/23/2025 13:08:11 07/23/2025 13:40:50 Tinnitus 68256278 H93.11 H93.12 Bilateral tinnitus 27493 82660 102 H93.13 Asymmetric al sensorineural hearing loss 845444277 H90.3 [id number] R>L Health Concerns Section Related Observation LastModified by Organization Detai ls LastModified Time None Recorded Concern Status LastModified by Organization Details LastModified Time None Recorded Advance Directives Directive None Recorded Payers Insurance Date Sequence Insurance Name Policy Number Policy Young Covered Member ID Young Member ID Guarantor Name 05/14/2025 1 [place]MEDICARE REPLACEMENT HMO) [id number] H Martin Omalley [id number] Martin Omalley 05/14/2025 1 [place] (O) [id number] H Martin Omalley [id number] Martin Omalley 05/14/2025 2 [place] VADIM Omalley [id number] Martin Omalley 07/30/2025 1 [place] 2 (POS) [id number] H Martin Omalley [id number] Martin Omalley 05/14/2025 2 [place] Maritn Omalley [id number] Martin Omalley Notes Date Note Type [...] at that time. Johnathon Montemayor, DO [address], [address], [place] - [facility] 05/14/2025 13:15:11 07/23/2025 text/html ROS as noted in the [...] at that time. Johnathon Montemayor, DO [address] [facility],[address], [address], [place] - [facility] 07/23/2025 13:38:47
--- OUTSIDE RECORDS SUMMARY | 2025-08-13 16:32 | XMS_ITS | Patient Health Record ---
Author Organization [facility] [place] Address [address] [facility] [place] [address] Care Team Providers Care Shuttle Filler Name Role Phone Freddy HALL, Serg Primary Care Provider Dali Pérez Unavailable [phone] Allergies Allergen (clinical drug ingredient) Drug/Non Drug Allergy documented on EMR Reaction Allergy Type Onset Date Status Oxybutynin Unknown Drug Allergy Active mirabegron Myrbetriq Unknown Drug Allergy Active Latex Unknown Drug Allergy Active Reason For Referral No Information Medications Medication SIG (Take, Route, Frequency, Duration) Notes Start Date End Date Status centrum silver Activ e Vitamin C 500 MG Orally Act maya Vitamin D3 500mg Act maya Acetaminophen 650mg Active Eliquis 5 MG Orally Active Levothyroxine Sodium 137mg Active Aspirin 81 MG Orally Active Mesalamine 800 MG Orally Ac tive Social History Tobacco Use: Social History Observation Description Date Details (start date - stop date) Former Smoker NA - NA Tobacco Use/Smoking Question Answer Notes Are you a: former smoker Additional Findings: Tobacco Non-User Current no n-smoker Alcohol Screen Question Answer Notes Did you have a drink containing alcohol in the p ast year? No Points 0 Interpretation Negative Tobacco use other than smoking: Question Answer Notes Are you an other tobacco user? No Problems Problem Type SNOMED Code ICD Code Onset Dates Problem Status W/U Status Risk Notes Problem Verruca plantaris (19360668) Verruca plantaris (B07.0) Active confirmed Plan Of Treatment Pending Test Test Name Order Date X ray : Foot, right 3V 09/15/2018 [id number] Destruction, 1-14 09/15/2018 Insurance Providers Payer Name Payer Address Payer Phone Subscriber Number Group Number Insured Name Patient Relationship to Insured Coverage Start Date Coverage End Date [facility] [address] [address] [place] [address] [phone] [id number] Martin Omalley Self - patient is the insured Medical (General) History Medical History History ICD Code Anemia Angina Arthritis Back,Hip,and Knee pain Cholesterol Cataracts Chron's/ Colitis Diverticulosis Heart disease Raynauds syndrome Reflux ( GERD) Sjogren syndrome Thyroid disorder Measles Mumps Chicken pox Hyperthyroidism osteoarthritis Surgical History Surgery Date(Month/Year) cardiac ablasion 01/2017 colectomy, partial 2010
== END 2025-08-13 14:46 | disposition home or self-care (01) ==
LOC: HO.LAB 14:45
PROVIDERS: PCP Physician Assistant; Visit Provider Internal Medicine
DX: K51.90 Ulcerative colitis, unspecified, without complications (principal); R19.7 Diarrhea, unspecified
CPT/HCPCS: 36415; 80048; 80076; 85025; 85652; 86140

== ENCOUNTER 2025-08-14 17:11 | Outpatient (REF) | payer BC, SELFPAY ==
--- OUTSIDE RECORDS SUMMARY | 2024-06-06 04:40 | XMS_ITS ---
Author Organization [facility] Address [address] [place] [address] Care Team Providers Care Skilled Nursing Case Manager Name Role Phone Sol Fair Primary Care Provider U Carley Zayas Unavailable [phone] REASON FOR VISIT ulcerative pancolitis,screening Problems Problem Type SNOMED Code ICD Code Onset Dates Problem Status W/U Status Risk Notes Problem Ulcerative pancolitis (228065960) Ulcerative pancolitis (K51.00) Active confirmed Problem History of gastrointestinal tract bypass (209269359) Intestinal bypass and anastomosis status (Z98.0) Active confirmed Problem Diverticular disease of colon (359771669) Diverticulosis of large intestine without perforation or abscess without bleeding (K57.30) Active confirmed Encounters Encounter Location Date Provider Diagnosis [facility] Outpatient [address] [place] [id number] 06/06/2024 Carley Ingram Ulcerative pancoli tis K51.00 ; Intestinal bypass and anastomosis status Z98.0 ; Diverticulosis of large intestine without perforation or abscess without bleeding K57.30 and Other hemorrhoids K64.8 Assessments Encounter Date Diagnosis (ICD Code) Assessment Notes Treatment Notes Treatment Clinical Notes Section Notes 06/06/2024 Ulcerative pancolitis (ICD-10 - K51.00) 06/06/2024 Intestinal bypass and anastomosis status (ICD-10 - Z98.0) 06/06/2024 Diverticulosis of large intestine without perforation or abscess without bleeding (ICD-10 - K57.30) 06/06/2024 Other hemorrhoids (ICD-10 - K64.8) Plan Of Treatment Next Appt Details Provider Name:Carley Ingram , 07/01/2026 09:10:00 AM, [address], [address], [place], [address], Progress Notes * CARLEY GODINEZ ADOB: [birth year] (75 yo M)Acc No.[id number]:06/06/2024 COLON WITH MAC Patient: CARLEY ECHAVARRIA Provider: Junior Ingram MD :1950 A ge:73 Y S ex:Male Date:06/06/2024 Address:[address] [place] [address] Pcp:Christine Fischer Subjective: * Chief Complaints: * 1 . Ulcerative pancolitis,screening. * Medical History: Objective: * Vitals: Assessment: * Assessment: 1. U lcerative pancolitis - K51.00 (Primary) 2 . I ntestinal bypass and anastomosis status - Z98.0 3 . D iverticulosis of large intestine without perforation or abscess without bleeding - K57.30 4 . O ther hemorrhoids - K64.8 ? Plan: * Treatment: * Procedure Codes: 4 5380 COLONOSCOPY AND BIOPSY * * The named appointment provid er may or may not be the originator of this progress note, and it is not deemed complete until electronically signed by the appointment provider. Sign off status: Pending * Provider: Junior Ingram MD Date: 0 06/06/2024 Generated for Adán dhaliwal/Aracelis/Ratnaitting on: 1 10/15/2024 06:58 PM EST
--- OUTSIDE RECORDS SUMMARY | 2025-08-12 04:15 | XMS_ITS ---
Author Organization [facility] Address [address] [place] [phone] Care Team Providers Care Senior Java Programmer Analyst Name Role Phone Sol Fair Primary Care Provider U Martin Zayas Unavailable [phone] REASON FOR VISIT UPDATE 08/15/25 Medications Medication SIG (Take, Route, Fr equency, Duration) Notes Start Date End Date Status predniSONE 5 MG 8 of the 5mg pills(4 0mg) daily for 1 week, and then decrease by 1 pill(5mg) per week Orally Once a day; Duration: 56 days 08/13/2025 Active Problems Problem Type SNOMED Code ICD Code Onset Dates Problem Status W/U Status Risk Notes Problem Diarrhea (09554043) Diarrhea (R19.7) Active confirmed Problem Ulcerative colitis (73918022) Ulcerative colitis (K51.90) Active confirmed Encounters Encounter Location Date Provider Diagnosis [facility] [address] [facility] [address] [place] [phone] 08/12/2025 Martin Ingram Diarrhea R19.7 and Ulcerative colitis K51.90 [...] GI PANEL 08/12/2025 Next Appt Details Provider Name:Martin Ingram , 07/01/2026 09:10:00 AM, [address] [facility], [address] [facility], [place], [address], Progress Notes * MARTIN GODINEZ ADOB: [birth year] (75 yo M)Acc No.[id number]:08/12/2025 Patient: MARTIN ECHAVARRIA :1950 A ge:75 Y S ex:Male Address:[address] [place] [address] * Refills Start predniSONE Tablet, 5 MG, Orally, 275, 8 of the 5mg pills(40mg) daily for 1 week, and then decrease by 1 pill(5mg) per week, Once a day, 56 days, Refills=0 Subjective: * Chief Complaints: * U PDATE 08/15/25 * Medical History: * Surgical History: * [...]
--- OUTSIDE RECORDS SUMMARY | 2025-08-15 18:59 | XMS_ITS | Patient Health Record ---
Author Organization [facility] Address [address] [place] [address] Care Team Providers Care Director Of Physician Practices Name Role Phone Sol Fair Primary Care Provider U reenarenard Carley Ingram Unavailable [phone] Allergies Allergen (clinical drug ingredient) Drug/Non Drug Allergy documented on EMR Reaction Allergy Type Onset Date Status pantoprazole Pantoprazole Unknown Drug Allergy A ctive mirabegron Myrbetriq Unknown Drug Allergy Active Oxybutynin Unknown Drug Allergy Active Latex Latex (uncoded) Unknown Allergy Acti ve Results Component Value Reference Range Notes Complete Blood Count Auto Di ff (Not yet reviewed by provider) Interpretation: Performing Lab:[facility], [address] [place] [address] Notes/Report: White Blood Count 4.3 4.8-10.8 X10*3/uL [...] X10*3/uL NRBC Abs Auto 0.000 0.0-0.012 X10*3/uL Erythrocyte Sedimentation Ra te Reviewed date:08/15/2025 01:30:20 AM Interpretation: Performing Lab:[address] [address] Notes/Report: Erythrocyte Sedimentation Rate 23 0-15 MM/HR Patients with polycythemia and many hemoglobin abnormalities may have depressed sed rates whereas patients with anemia may have elevated sed rates. Liver Panel Reviewed date:08/15/2025 01:33:01 AM Interpretation: Performing Lab:[address] [address] Notes/Report: Bilirubin Total 0.5 0.0-1.0 mg/dL Bilirubin Direct 0.2 0.0-0.5 mg/dL Aspartate Amino Transferase 25 5-37 U/L Alanine Aminotransferase 15 0-40 U/L Total Protein 6.6 6.5-8.0 g/dL Albumin Level 4.0 3.5-5.0 g/dL Alkaline Phosphatase 66 39-117 U/L Basic Metabolic Panel Reviewed date:08/15/2025 01:32:26 AM Interpretation: Performing Lab:[address] [address] Notes/Report: Sodium 137 135-145 mmol/L Potassium 4.9 [...] Calcium 9.0 8.4-10.2 mg/dL C Reactive Protein Reviewed date:08/15/2025 01:30:53 AM Interpretation: Performing Lab:[facility], [address] [place] [address] Notes/Report: C Reactive Protein 0.34 < or [...] 1.2 GM TAKE 2 TABLETS BY MO UTH TWICE A DAY; Duration: 90 Active Furosemide [...] Status Risk Notes Problem Colon cancer screening (415590702) Colon cancer screening (Z12.11) Active confirmed Problem Diarrhea (55878875) Diarrhea (R19.7) Active con firmed Problem Weight loss (814296973) Weight loss (R63.4) Active confirmed Problem Diverticular disease of colon (452349160) Diverticulosis of large intestine without perforation or abscess without bleeding (K57.30) Active confirmed Problem History of gastrointestinal tract bypass (848771959) Intestinal bypass and anastomosis status (Z98.0) Active confirmed Problem Iron deficiency anemia due to chronic blood loss (832438767) Iron deficiency anemia due to chronic blood loss (D50.0) Active confirmed Problem Iron deficiency anemia (89820141) Iron deficiency anemia, unspecified iron deficiency anemia type (D50.9) Active confirmed Problem Chronic ulcerative pancolitis (204616303) Ulcerative pancolitis without complication (K51.00) Active confirmed Problem Dysphagia (43614286) Dysphagia, unspecified type (R13.10) Active confirmed Problem Ulcerative colitis (08260147) Ulcerative colitis (K51.90) Active confirmed Problem Abnormal findings diagnostic imaging of liver and biliary tract (758340436) Abnormal computerized tomography of biliary tract (R93.2) Active confirmed Problem Ulcerative pancolitis (520763413) Ulcerative pancolitis (K51.00) Active confirmed Vital Signs Temperature 98.6 degrees Fahrenheit 06/26/2025 Blood pressure diastolic 01 mm Hg 06/26/2025 Height 71.25 in 06/26/2025 Blood pressure systolic 001 mm Hg 06/26/2025 Weight 167 lbs 06/26/2025 BMI 23.13 kg/m2 06/26/2025 Encounters Encounter Location Date Provider Diagnosis [facility] [address] [place] [address] 06/26/2025 Carley Ingram Ulcerative pancoliti s without complication K51.00 [facility] [address] [place] [address] 08/12/2025 Carley Ingram Diarrhea R19.7 and Ulcerative colitis K51.90 [facility] [address] [place] [address] 11/23/2024 Carley Ingram Assessments Encounter Date Diagnosis [...] PCR 08/12/2025 Complete Blood Count Auto Diff Amylase 12/08/2022 Lipase 12/08/2022 Calprotectin, Fecal 08/12/2025 GI PANEL 08/12/2025 Future Test Test Name Order Date COLONOSCOPY 08/01/2013 UPPER GI ENDOSCOPY 10/08/2016 COLONOSCOPY 10/08/2016 COLONOSCOPY 10/24/2020 COLONOSCOPY 02/29/2024 Next Appt Details Provider Name:Carley Dhillon Ingram , 07/01/2026 09:10:00 AM, [address] [place] [address], [address], [place], [address], Insurance Providers Payer Name Payer Address Payer Phone Subscriber Number Group Number Insured Name Patient Relationship to Insured Coverage Start Date Coverage End Date [facility] [address] [place], [place] [id number] CARLEY OMALLEY Self - patient is [...] Dr. Azar Hypothyroidism History of pneumonia Denies TX,DM,CVA,Lung disease,renal dise ase History of pericarditis EGD and colonoscopy in 0-the upper endoscopy was negative for celiac disease nor any other significant findings; the colonoscopy did not show any active colitis, polyps, nor dysplasia SVT-- unsuccessful ablation in 2011, neg. cardiac cath [...] CT scan Atrial fibrillation Colonoscopy in June 4 revealed no sign of any active colitis or polyps. Biopsies throughout the colon were all negative for dysplasia. Surgical History Surgery Date(Month/Year) Umbilical hernia Right side inguinal hernia repair Diverticulitis with temp. co lostomy in 2005, operated on by Dr. Humphrey--sigmoid resection
--- OUTSIDE RECORDS SUMMARY | 2025-08-15 18:59 | XMS_ITS | Patient Health Record ---
Author Organization [facility] [place] Address [address] [place] [address] Care Team Providers Care Chemical Treatment Plant Technician Name Role Phone Freddy HALL, Serg Primary Care Provider Dali Pérez Unavailable [phone] Allergies Allergen (clinical drug ingredient) Drug/Non Drug [...] W/U Status Risk Notes Problem Verruca plantaris (28675768) Verruca plantaris (B07.0) Active confirmed Plan Of Treatment Pending Test Test Name Order Date X ray : Foot, right 3V 09/15/2018 [id number] Destruction, 1-14 09/15/2018 Insurance Providers Payer Name Payer Address Payer Phone Subscriber Number Group Number Insured Name Patient Relationship to Insured Coverage Start Date Coverage End Date [facility] [address] [address] [place] [address] [phone] [id number] Martin Omalley Self - patient is the insured Medical (General) History Medical History History ICD Code Anemia Angina Arthritis Back,Hip,and Knee pain Cholesterol Cataracts Chron's/ Colitis Diverticulosis Heart disease Raynauds syndrome Reflux ( GERD) Sjogren syndrome Thyroid disorder Measles Mumps Chicken pox Hyperthyroidism osteoarthritis Surgical History Surgery Date(Month/Year) cardiac ablasion 01/2017 colectomy, partial 2010
--- OUTSIDE RECORDS SUMMARY | 2025-08-15 18:59 | XMS_ITS | Encounter Summary ---
Author Organization [facility] Address [address] [place] [address] Phone Care Team Providers Care Digital Communications Manager Name Role Phone Serg Hayes MD Primary Care Provider [phone] Rafael Reese MD Unavailable [phone] Francisco Azar MD Unavailable [email or web address] Serg Hayes MD Unavailable [phone] Reid Galloway MD Unavailable [phone] Jackson Hardin MD, MS Unavailable [phone] Sherron Grey FLAT LOCK MACHINE OPERATOR Unavailable [phone] Bhavesh Murphy MD Unavailable [phone] Pcp, Unknown Primary Care Provider Unavailabl Xavier Hinkle MD Primary Care Provider [phone] Encounter Details Date Type Department Care Team (Late st Contact Info) Description 04/10/2019 Procedure Pass [facility], [facility] [address] [place] [address] Social History Tobacco Use Types Packs/Day Years [...] documented as of this encounter Care Teams Digital Communications Manager Relationship Specialty Start Date End Date Serg Hayes MD [address] [place] [address] [email or web address] PCP - General 07/21/17 07/29/20 Pcp, Unknown PCP - General 07/30/20 07/28/21 Xavier Finn MD PCP - General Internal Medicine 07/29/21 Rafael Reese MD [address] [place] [address] [email or web address] Historical LMR Provider 07/21/17 07/29/20 Francisco Azar MD [email or web address] Historical LMR Provider 07/21/17 07/29/20 Serg Hayes MD [address] [place] [address] [email or web address] Historical LMR Provider 07/21/17 07/29/20 Reid Galloway MD [address] [place] [address] [email or web address] Historical LMR Provider 07/21/17 Jackson Hardin MD, MS [address] [place] [address] Historical LMR Provider 07/21/17 07/29/20 Sherron Grey NP [address] [place] [address] Historical LMR Provider 07/21/1707/29 Bhavesh Murphy MD [address] [place] [address] Historical LMR Provider 07/21/1707/04 documented as of this encounter Additional Source Comments The information contained in this document represents components of the legal health record. It is not the complete legal health record.[facility]
--- OUTSIDE RECORDS SUMMARY | 2025-08-15 18:59 | XMS_ITS | Clinical Summary ---
Author Organization [facility] Address [address] [place] [address] Phone Care Team Providers Care Solutions Sales Executive Name Role Phone Xavier Finn MD Primary Care Provider [phone] Allergies Active Allergy Reactions Criticality Noted Date [...] mg Cap Orally Twice a day Active multivitamin-under ground miner als-lutein (CENTRUM SILVER) Tab Orally Active levothyroxine [...] Active ferrous sulfate 325 mg (65 mg lower [place] iron) tablet Take 325 mg by mouth [...] complete obliteration of the medial compartment with [id number]-bj-cjop as well as osteophytosis and sharpening the [...] of this 28-minute visit was spent in rdxv-le-wurb conversation with the patient coordinating my care [...] pain. 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 Undifferentiated connective tissue disease 08/30 Assessment & [...] and well-controlled and he only uses rarely znjm-whv-azprfzg artificial tears for his dry eyes. We [...] * COLONOSCOPY FOR RESULT ENTRY ONLY (11/28/2013) [facility] Signature Colonoscopy normal Historical Inocencia HALL HEALTH MAINTENANCE Final Result from Last 3 Months or Most Recently Relevant to Health Maintenance Insurance MEDICARE A BLUE [place] OUT OF STATE [place] MEDICARE A [place]UE [place] [facility] [place] [facility] [place] [facility] A [place] [facility] MEDIC[facility] A [place] [facility] MEDIC[facility] [place] [facility] [facility] MEDICARE A BLUE CROSS OUT OF STATE O MEDICARE A Care Teams Solutions Sales Executive Relationship Specialty Start Date End Date Xavier Finn MD PCP - General Internal Medicine 07/29/21 Additional Source Comments The information contained in this document represents components of the legal health record. It is not the complete legal health record.[facility]
--- OUTSIDE RECORDS SUMMARY | 2025-08-15 18:59 | XMS_ITS | Data Portability ---
Author Organization [place] [facility], Allergy Address [address] [address] Care Team Providers Care Merchandise Shopper Name Role Phone KATYDAVID TRUJILLO Primary Care [...] today. I provided them a list of client success specialist's within the region to choose from. - [...] ....IAC protocol 2024 025 pgustavson [facility] [place], [facility]0 [facility], [address] [address], [place], [address], 12:40:32 Medication Orders None recorded. Patient TargetsNo targets recorded. Patient InstructionsNo instructions recorded. Reason for Referral None Reported. Results Created Date Observation Date Name Description Value Unit Range Abnormal Flag Note LastModifiedBy Organization Detail LastModifiedTime 06/26/20 25 06/25/2025 MRI, brain + inter nal audit ory canal , w/wo contr ast No observ ation record ed. ccomi [facility] [place] [address] [address], [place], [address], 06/28/2025 16:29:48 Result Notes None recorded. Problems Name Problem SNOMED Code Status Onset Date Resolution Date Notes Provider Name and Address Organization Details Recorded Time Dysphagia 86507378 Active 2015 Dysphagia , unspecifi ed; Note: Date Diagnosed : 07/01/2016 11:18 AM (R13.10) Not Available [facility] 4 02:26:37 Dysphonia 75403935 Active 2015 Other voice and resonance disorders ; Note: Date Diagnosed : 09/03/2016 4:46 PM (R49.8) Not Available [facility] 4 02:26:23 Finding of resonance of voice 343742229 Active 2015 Other voice and resonance disorders ; Note: Date Diagnosed : 09/03/2016 4:46 PM (R49.8) Not Available [facility] 4 02:26:23 Bilateral tinnitus 12057740796 02 Active 2024 Johnathon Montemayor, DO [address] [facility] [address], [place], [place], [address] , [facility] - [facility] 5 09:25:24 Tinnitus 19984599 Active 2024 Johnathon Montemayor, DO [address] [facility],[address] [address], [place], [address] , [facility] - [facility] 5 09:25:24 Sensorine ural hearing loss 26321972 Active 2024 Johnathon Montemayor, [address] [facility],[address] [address], [place], [place], [address] , [facility] - [facility] [place] 5 09:25:24 Asymmetri elliott sensorine ural hearing loss 471279175 Active 2024 Johnathon Montemayor, [address] [facility],[address] [address], [place], [place], [address] , [facility] - [facility] 5 13:13:11 Problem Notes None recorded. Medical Equipment None Reported. Medications Name Sig Start Date Stop Date Status Note LastModified by Organization Details LastModified Time levothyro xine 175 mcg tablet 05/14 completed Medicati on ID: [id number] D uration Value: 90 Brand Name: levothyr oxine Se nd Method: E-Prescr ibed Sub s Allowed: subs OK Medic ationGen ericName : levothyr oxine Not Available Not Available Not Available midodrine 5 mg tablet TAKE 1 TABLET BY MOUTH TWICE A DAY active Not Available Not Available No t Available digoxin 250 mcg (0.25 mg) tablet 05/14 completed Medicati on ID: [id number] D uration Value: 30 Brand Name: digoxin [...] mg tablet 05/14 completed Medicati on ID: [id number] D uration Value: 90 Brand Name: flecaini [...] mg tablet 05/14 completed Medicati on ID: [id number] D uration Value: 90 Brand Name: hydroxyc [...] mg tablet 05/14 completed Medicati on ID: [id number] D uration Value: 30 Brand Name: oxybutyn [...] (1,000 unit) capsule active Medicati on ID: [id number] B rand Name: Vitamin D3 Send Method: E-Prescr ibed Sub s Allowed: subs OK Medic ationGen ericName : Vitamin D3 Not Available Not Available Not Available mesalamin e 1.2 gram tablet,de layed release TAKE 2 TABLETS BY MOUTH TWICE A DAY active Not Available Not Available No t Available mesalamin e 800 mg tablet,de layed release 05/14 completed Medicati on ID: [id number] D uration Value: 90 Brand Name: mesalami ne Send Method: E-Prescr ibed Sub s Allowed: subs OK Medic ationGen ericName : mesalami ne Not Available Not Available Not Available Vit C(ascorb. calcium)( mv-mins)1 ,000 mg oral effervesc ent powder packet active Medicati on ID: [id number] B rand Name: Vitamin C Send Method: E-Prescr ibed Sub s Allowed: subs OK Medic ationGen ericName : Vitamin C Not Available Not Available Not Available Centrum Silver 400 mcg-250 mcg chewable tablet active Medicati on ID: [id number] B rand Name: Centrum Silver S end Method: E-Prescr ibed Sub s Allowed: subs OK Medic ationGen ericName : Centrum Silver Not Available Not Available Not Available Citracal- D3 Slow Release 600 mg-12.5 mcg (500 unit) tablet,ex tend. rel active Medicati on ID: [id number] B rand Name: Citracal + D Slow [...] Updated DateTime 05/14/2025 177.8 cm 24.4 kg/m2 97323.7 g OFELIA COPPOLA [place] [facility] 05/14/2025 13:00:29 Date Recorded Body height Provider Name an d Address Organization Details Last Updated DateTime 07/23/2025 177.8 cm OFELIA COPPOLA [place] [facility] 07/23/2025 13:20:49 Social History None recorded. Functional Status None recorded. Mental Status None recorded. Family History Nothing Reported. Medical History No medical history recorded. Past Encounters Encounter ID Performer Location Encounter Start Date Encounter Closed Date Diagnosis/Indication Diagnosis SNOMED-CT Code Diagnosis ICD10 Code Diagnosis IMO Codes Diagnosis Note [id number] Johnathon Montemayor DO [facility] [address] [address] 05/14/2025 12:41:10 05/14/2025 13:15:49 Tinnitus 20598799 H93.11 H93.12 Bilateral tinnitus 72294 76118 102 H93.13 Asymmetric al sensorineural hearing loss 055164594 H90.3 521485 R>L [id number] Johnathon Montemayor DO [facility] [address] [address] 07/23/2025 13:08:11 07/23/2025 13:40:50 Tinnitus 46028592 H93.11 H93.12 Bilateral tinnitus 80636 28352 102 H93.13 Asymmetric al sensorineural hearing loss 550748340 H90.3 457694 R>L Health Concerns Section Related Observation LastModified by Organization Detai ls LastModified Time None Recorded Concern Status LastModified by Organization Details LastModified Time None Recorded Advance Directives Directive None Recorded Payers Insurance Date Sequence Insurance Name Policy Number Policy Young Covered Member ID Young Member ID Guarantor Name 05/14/2025 1 [place]MEDICARE [place]PLACEMENT HMO) [id number] H Martin Omalley [id number] Martin Omalley 05/14/2025 1 [place] (O) [id number] H Martin Omalley [id number] Martin Omalley 05/14/2025 2 [place] VADIM [place]malley [id number] Martin Omalley 07/30/2025 1 [place] CHO[place] 2 (POS) [id number] H Martin Omalley [id number] Martin Omalley 05/14/2025 2 [place] Martin Omalley [id number] Martin Omalley Notes Date Note Type [...] at that time. Johnathon Montemayor, DO [address], [address], [place] - [facility] 05/14/2025 13:15:11 07/23/2025 text/html ROS as [...] at that time. Johnathon Montemayor, DO [address] [facility],[address], [address], [place] - [facility] 07/23/2025 13:38:47
--- OUTSIDE RECORDS SUMMARY | 2025-08-15 18:59 | XMS_ITS | Continuity of Care Document ---
Author Organization [place] [facility], [facility] Address [address] [place] [address] Care Team Providers Care Airbrush Artist Name Role Phone DAVID CARVER Primary Care Provider [phone] Assessment Encounter Date Assessment Date Assessment LastModified [...] today. I provided them a list of shearing machine tender's within the region to choose from. - [...] observ ation record ed. ccomi [facility] [place] [address] [facility] [address], [place], [address], 06/28/2025 16:29:48 Result Notes None recorded. Problems Name Problem SNOMED Code Status Onset Date Resolution Date Notes Provider Name and Address Organization Details Recorded Time Dysphagia 34217908 Active 2015 Dysphagia , unspecifi ed; Note: Date Diagnosed : 07/01/2016 11:18 AM (R13.10) Not Available [facility] 4 02:26:37 Dysphonia 60472412 Active 2015 Other voice and resonance disorders ; Note: Date Diagnosed : 09/03/2016 4:46 PM (R49.8) Not Available [facility] 4 02:26:23 Finding of resonance of voice 649352140 Active 2015 Other voice and resonance disorders ; Note: Date Diagnosed : 09/03/2016 4:46 PM (R49.8) Not Available [facility] 4 02:26:23 Bilateral tinnitus 55103933345 02 Active 2024 Johnathon Montemayor DO [address] [address], [place], [address] , [facility] - [facility] 5 09:25:24 Tinnitus 15545111 Active 2024 Johnathon Montemayor [address] [address], [place], [address] , [facility] - [facility] [place] 5 09:25:24 Sensorine ural hearing loss 05154893 Active 2024 Johnathon Montemayor DO [address] [address], [place], [address] , [place] [facility] [place] 5 09:25:24 Asymmetri elliott sensorine ural hearing loss 577263925 Active 2024 Johnathon Montemayor DO 100 [facility],[address] [address], [place], [address] , [place] [facility] 13:13:11 Problem Notes None recorded. Medical Equipment None Reported. Medications Name Sig Start Date Stop Date Status Note LastModified by Organization Details LastModified Time levothyro xine 175 mcg tablet 05/14 completed Medicati on ID: [id number] D uration Value: 90 Brand Name: levothyr oxine Se nd Method: E-Prescr ibed Sub s Allowed: subs OK Medic ationGen ericName : levothyr oxine Not Available Not Available Not Available midodrine 5 mg tablet TAKE 1 TABLET BY MOUTH TWICE A DAY active Not Available Not Available No t Available digoxin 250 mcg (0.25 mg) tablet 05/14 completed Medicati on ID: [id number] D uration Value: 30 Brand Name: digoxin [...] mg tablet 05/14 completed Medicati on ID: [id number] D uration Value: 90 Brand Name: flecaini [...] mg tablet 05/14 completed Medicati on ID: [id number] D uration Value: 90 Brand Name: hydroxyc [...] mg tablet 05/14 completed Medicati on ID: [id number] D uration Value: 30 Brand Name: oxybutyn [...] (1,000 unit) capsule active Medicati on ID: [id number] B rand Name: Vitamin D3 Send Method: E-Prescr ibed Sub s Allowed: subs OK Medic ationGen ericName : Vitamin D3 Not Available Not Available Not Available mesalamin e 1.2 gram tablet,de layed release TAKE 2 TABLETS BY MOUTH TWICE A DAY active Not Available Not Available No t Available mesalamin e 800 mg tablet,de layed release 05/14 completed Medicati on ID: [id number] D uration Value: 90 Brand Name: mesalami ne Send Method: E-Prescr ibed Sub s Allowed: subs OK Medic ationGen ericName : mesalami ne Not Available Not Available Not Available Vit C(ascorb. calcium)( mv-mins)1 ,000 mg oral effervesc ent powder packet active Medicati on ID: [id number] B rand Name: Vitamin C Send Method: E-Prescr ibed Sub s Allowed: subs OK Medic ationGen ericName : Vitamin C Not Available Not Available Not Available Centrum Silver 400 mcg-250 mcg chewable tablet active Medicati on ID: [id number] B rand Name: Centrum Silver S end Method: E-Prescr ibed Sub s Allowed: subs OK Medic ationGen ericName : Centrum Silver Not Available Not Available Not Available Citracal- D3 Slow Release 600 mg-12.5 mcg (500 unit) tablet,ex tend. rel active Medicati on ID: [id number] B rand Name: Citracal + D Slow [...] ICD10 Code Diagnosis IMO Codes Diagnosis Note [id number] Johnathon Montemayor, DO [facility] [address] [address] 07/23/2025 13:08:11 07/23/2025 13:40:50 Tinnitus 85923230 H93.11 H93.12 Bilateral tinnitus 89510 97204 102 H93.13 Asymmetric al sensorineural hearing loss 942817464 H90.3 391095 R>L Health Concerns Section Related Observation LastModified by Organization Detai ls LastModified Time None Recorded Concern Status LastModified by Organization Details LastModified Time None Recorded Payers Encounter Date Sequence Insurance Name Policy Number Policy Young Covered Member ID Young Member ID Guarantor Name 07/23/2025 1 [place] 2 ([place]) [id number] H Martin Omalley [id number] Martin Omalley Notes Date Note Type [...] at that time. Johnathon Montemayor, DO [address] [facility],[address] [address], [place], [address], [facility] - [facility] 07/23/2025 13:38:47
[2025-08-15 19:38] LABS: CDiff Gene PCR NEGATIVE (Negative)
[2025-08-16 10:26] LABS: E. coli EAEC Not Detected (Not Detect.); E. coli EPEC Not Detected (Not Detect.); E. coli ETEC Not Detected (Not Detect.); E. coli STEC Not Detected (Not Detect.); Shigella sp./EIEC Not Detected (Not Detect.)
[2025-08-22 20:23] LABS: Calprotectin, Fecal 4320 mcg/g
== END 2025-08-14 17:12 | disposition home or self-care (01) ==
LOC: HO.LNP 17:11
PROVIDERS: Visit Provider Internal Medicine
DX: K51.90 Ulcerative colitis, unspecified, without complications (principal); R19.7 Diarrhea, unspecified
CPT/HCPCS: 83993; 87493; 87507